=== PATIENT | female | born 1960 | race Caucasian/White ===

== ENCOUNTER → 2018-10-04 | Outpatient (CLI) | payer BC ==
--- NOTE | 2018-10-11 07:53 | MM ---
Reason for exam: screening (asymptomatic). Last mammogram was performed 3 years ago. History: Patient has history of uterine cancer at age 31. Took hormonal contraceptives for 3 years. MG 3D Screening Mammo W/Cad Bilateral CC and MLO view(s) were taken. Prior study comparison: October 15, 2015, bilateral MG screening mammo w CAD. November 29, 2007, bilateral diagnostic digital mammog. There are scattered fibroglandular densities. Bilateral breast chronic nodularity. New increased circumscribed nodularity medial right breast . One nodule, reniform in shape suggesting intramammary lymph node; a six month follow up is recommended. ASSESSMENT: Probably benign, BI-RAD 3 RECOMMENDATION: Follow-up diagnostic mammogram of the right breast in 6 months. ELIU
== END | disposition home or self-care (01) ==
LOC: RADMAMWWP 08:17
PROVIDERS: ATTEND Family Medicine
DX: Z12.31 Encounter for screening mammogram for malignant neoplasm of breast (principal)
CPT/HCPCS: 77063; 77067

== ENCOUNTER → 2018-11-14 | Outpatient (CLI) | payer OTHER ==
--- NOTE | 2018-11-14 13:05 | XR ---
EXAMINATION TYPE: XR sacrum coccyx DATE OF EXAM: 11/14/2018 COMPARISON: NONE HISTORY: Pain Three views are submitted. Sacrum is intact. SI joints are symmetric. Coccyx appears to be intact. Visualized pelvic structures intact. Calcifications in the pelvis likely vascular. IMPRESSION: 1. No acute fracture.
--- NOTE | 2018-11-14 13:08 | XR ---
EXAMINATION TYPE: XR cervical spine 5 views comp XR lumbar spine 2 or 3V DATE OF EXAM: 11/14/2018 COMPARISON: NONE HISTORY: 58-year-old female with left-sided pain after fall yesterday morning FINDINGS: Cervical spine: No predental space widening or prevertebral soft tissue swelling. Mild facet arthropathy scattered th roughout. No significant bony neuroforaminal narrowing on either side. Normal odontoid view. Lumbar spine: There is some leftward truncal shift noted which could be positional. There seems to be a transitiona l lumbosacral segment denoted as sacralized L5 with right-sided hemisacralization. There is hypertrop hic facet arthropathy mid to lower lumbar spine with grade 1 anterolisthesis at L4-L5. There is degen erative thinning of the intraspinous ligaments with abutment of the spinous processes in the lower mauro mbar spine. Vertebral body heights are preserved. IMPRESSION: 1. Cervical spine: No prevertebral soft tissue swelling or malalignment. 2. Lumbar spine: Transitional lumbosacral segment denoted as a right hemisacralization of L5. 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 No vertebral compression collapse.
--- NOTE | 2018-11-14 15:10 | XR ---
EXAMINATION TYPE: XR pelvis AP view DATE OF EXAM: 11/14/2018 COMPARISON: NONE HISTORY: 58-year-old female with left-sided pain after fall FINDINGS: Mild degenerative changes of both hips. Osteopenia. SI joints and pubic symphysis appear intact. No a cute fracture, subluxation, or dislocation. IMPRESSION: Mild degenerative change at both hips. No acute osseous abnormality seen.
== END | disposition home or self-care (01) ==
LOC: RADXRMAIN 12:04
PROVIDERS: ATTEND Emergency Medicine
DX: M46.96 Unspecified inflammatory spondylopathy, lumbar region (principal); M48.26 Kissing spine, lumbar region; M43.16 Spondylolisthesis, lumbar region; M16.0 Bilateral primary osteoarthritis of hip; S30.0XXA Contusion of lower back and pelvis, initial encounter
CPT/HCPCS: 72050; 72100; 72170; 72220

== ENCOUNTER → 2018-11-25 | Outpatient (CLI) | payer OTHER ==
--- NOTE | 2018-11-25 22:37 | MR ---
EXAMINATION TYPE: MR lumbar spine wo con DATE OF EXAM: 11/25/2018 COMPARISON: Lumbar spine x-ray November 14, 2018. HISTORY: Contusion injury November 14 of lower back and pelvis with pain into left buttocks and thigh per patient. TECHNIQUE: Multiplanar, multisequence imaging of the lumbar spine is performed without IV contrast. FINDINGS: Sagittal images of the lumbar spine show vertebral body heights and alignment to appear sat isfactory. There is multilevel disc desiccation and disc space heights are fairly well maintained. Th e large posterior disc herniations are seen on sagittal images. The conus medullaris is normal in pos ition and signal ending mid L1 level. The bone marrow signal intensity is within normal limits. No s ignificant spurring is seen. Axial images show the T12-L1, L1-L2, L2-L3, and L3-L4 levels all to appear within normal limits. Axial images at the L4-L5 levels show [id number] facet degenerative changes bilaterally. Spinal canal is preserved. Bilateral neural foramina are patent. Axial images at the L5-S1 level show moderate to advanced facet degenerative changes bilaterally. Spi nal canal is preserved. Bilateral neural foramina are patent. No suspicious incidental retroperitoneal findings are seen. IMPRESSION: Facet arthropathy lower lumbar spine. No suspicious disc herniation or paraspinal hematom a identified.
== END ==
LOC: RADMRIMAIN 20:46
PROVIDERS: ATTEND Emergency Medicine
DX: M46.86 Other specified inflammatory spondylopathies, lumbar region (principal); S30.0XXD Contusion of lower back and pelvis, subsequent encounter; S13.4XXD Sprain of ligaments of cervical spine, subsequent encounter
CPT/HCPCS: 72148

== ENCOUNTER → 2019-10-10 | Outpatient (CLI) | payer BC ==
--- NOTE | 2019-10-10 09:07 | MM ---
Reason for exam: additional evaluation requested from prior study. Last mammogram was performed 1 year ago. History: Patient has history of endometrial cancer at age 31. Took hormonal contraceptives for 3 years. Physical Findings: Nurse did not find any significant physical abnormalities on exam. MG 3D Diag Mammo W/Cad CORINNE Bilateral CC and MLO view(s) were taken. Prior study comparison: October 04, 2018, bilateral MG 3d screening mammo w/cad. October 15, 2015, bilateral MG screening mammo w CAD. There are scattered fibroglandular densities. No suspicious abnormality. No significant new findings when compared with previous films. These results were verbally communicated with the patient and result sheet given to the patient on 10/10/19. ASSESSMENT: Negative, BI-RAD 1 RECOMMENDATION: Routine screening mammogram of both breasts in 1 year.
== END | disposition home or self-care (01) ==
LOC: RADMAMWWP 08:08
PROVIDERS: ATTEND Family Medicine
DX: N63.10 Unspecified lump in the right breast, unspecified quadrant (principal); N63.20 Unspecified lump in the left breast, unspecified quadrant
CPT/HCPCS: 77062; 77066

== ENCOUNTER → 2020-11-22 | Outpatient (CLI) | payer BC ==
--- NOTE | 2020-11-22 10:11 | P.PAINCN ---
History of Present Illness - Reason for Consult Consult date: 11/22/20 - History of Present Illness This is a 60-year-old patient referred by Dr. Navarro with a chief complaint of chronic pain in right buttock area. Patient states that she had a fall in November 2018 has been having pain ever since. She saw her PCP who ordered an MRI and referred to Dr. Navarro. Pain is worse in the right side compared to the left. Pain is worse with sitting, standing from a seated position, and walking upstairs. Pain does not really radiate into the legs, occasionally will go into the posterior thigh but not often. In terms of management, patient has been taking Advil or acetaminophen as needed with some help. Has never had injections before.Currently a 04/02. Patient denies adverse drug effects from medications. Patient also denies new- onset weakness, bowel/bladder incontinence, or any other signs or symptoms of cauda equina syndrome. There are no signs of acute intoxication, and no indications of medication diversion or overuse. In addition to above, 13-point review of systems is also negative for chest pain, shortness of breath, changes in vision, changes in hearing, new onset weakness, abdominal pain, diarrhea, extreme fatigue, malaise, fever, skin ch anges, homicidal or suicidal ideation, or bowel or bladder incontinence. Physical exam: Vital Signs: Reviewed in EMR GENERAL: Well appearing, in no acute distress PSYCH: Mood and affect is appropriate. Awake, alert, and oriented SKIN: Skin color, texture, turgor normal, no rashes or lesions HEENT: Normocephalic, atraumatic. EOM intact CV: No pedal edema RESP: Respirations are unlabored, no audible wheezing GI: Abdomen non-distended MUSCULOSKELETAL: Bilateral upper and lower extremity strength is normal and symmetric. Lumbar muscle atrophy noted Lumbar spine: Straight leg raising in the sitting position is negative for radicular pain. pain to palpation over the lumbar spine and paraspinous muscles. Negative for pain with facet loading and back extension/rotation. Normal range of motion without pain reproduction Buttocks: pain to palpation over the right PSIS, Aaron test is positive on the right side Extremities: Peripheral joint ROM is full and pain free without obvious instability or laxity in all four extremities. No edema or skin discolorations noted. Gait: Gait is normal NEUR: Bilateral upper and lower extremity coordination and muscle stretch reflexes are physiologic and symmetric. Negative clonus. No loss of sensation is noted. Cranial nerves are grossly intact. Imaging: Lumbar MRI 11/2018 At the levels of 12 L1, L1-L2, L2-L3, L3-L4 all levels appear to be within nor mal limits At L4-L5, there is mild to moderate facet degenerative changes bilaterally. Spinal canal is preserved as well as a neural foramina. At the level of L5-S1 there is moderate to advanced facet degenerative changes bilaterally. There is no stenosis of the spinal canal or neural foramina. Patient does have a sacralized lumbar segment as well Assessment: 1. Right sacroiliitis 2. Lumbar spondylosis Plan: 1. Explanation: Diagnoses, prognoses, and multiple treatment options including but not limited to physical therapy, interventional therapies, medication management and surgery were discussed with the patient and all questions were answered to the patient's satisfaction. 2. Investigations: none 3. Counseling: The patient was counseled for 3 minutes on BODY MASS INDEX, EXERCISE. Specifically, the patient was instructed regarding the importance of weight control, and exercise in the context of both chronic pain and overall health. 4. Procedures: Schedule R SI injection 5. Consultations: Encouraged PT regimen at home 6. Medications: None 7. Disposition: for above procedure I have spent 41 minutes with chart reviewing the patient, speaking to the patient, and discussing plan of care with the patient Past Medical History Past Medical History: Cancer, Diabetes Mellitus, Hyperlipidemia, Hypertension, Musculoskeletal Disorder Additional Past Medical History / Comment(s): Uterine cancer. Neuropathy toes, mild. Hx fall years ago, had PT. c/o lower back and Rt hip pain History of Any Multi-Drug Resistant Organisms: None Reported Past Surgical History: Hysterectomy, Orthopedic Surgery Additional Past Surgical History / Comment(s): ORIF Rt ankle/leg; removal hardware later. Past Anesthesia/Blood Transfusion Reactions: Motion Sickness Additional Past Anesthesia/Blood Transfusion Reaction / Comm: no blood transfusion hx Smoking Status: Current every day smoker - Past Family History Mother Family Medical History: Cancer Additional Family Medical History / Comment(s): uterine cancer Father Family Medical History: Cancer Additional Family Medical History / Comment(s): skin cancer Medications and Allergies Home Medications Medication Instructions Recorded Confirmed Type Advil Duo Action 3 tab PO DIRECTED PRN 11/16/20 History Atorvastatin [Lipitor] 40 mg PO HS 11/16/20 11/16/20 History Calcium Phos/Vit D3/Mag Oxide 1 each PO DAILY 11/16/20 11/16/20 History [Posture-D Caplet] Cholecalciferol [Vitamin D3 (25 50 mcg PO DAILY 11/16/20 11/16/20 History Mcg = 1000 Iu)] Citalopram Hydrobromide 20 mg PO DAILY 11/16/20 11/16/20 History [Citalopram HBr] Dulaglutide [Trulicity] 1.5 mg SQ HENDERSON 11/16/20 11/16/20 History Insulin Degludec [Tresiba] 52 units SQ HS 11/16/20 11/16/20 History Losartan [Cozaar] 25 mg PO DAILY 11/16/20 11/16/20 History Multivit with Calcium,Iron,Min 1 each PO DAILY 11/16/20 11/16/20 History [Women's Multivitamin] Cary-3/Dha/Epa/Fish Oil [Fish Oil 1 each PO DAILY 11/16/20 11/16/20 History 500 mg Softgel] Pioglitazone [Actos] 30 mg PO DAILY 11/16/20 11/16/20 History Allergies Allergy/AdvReac Type Severity Reaction Status Date / Time naproxen Allergy Rash/Hives, Verified 11/16/20 13:46 throat closing up PQRS Measure Charge Sheet PQRS Narrative: Pain Intensity [Right Hip] 6 Pain Intensity [Lower Back] 6 Hx Alcohol Use (MH) No Home Medications: Ambulatory Orders Advil Duo Action 3 tab PO DIRECTED PRN 11/16/20 Atorvastatin [Lipitor] 40 mg PO HS 11/16/20 Calcium Phos/Vit D3/Mag Oxide [Posture-D Caplet] 1 each PO DAILY 11/16/20 Cholecalciferol [Vitamin D3 (25 Mcg = 1000 Iu)] 50 mcg PO DAILY 11/16/20 Citalopram Hydrobromide [Citalopram HBr] 20 mg PO DAILY 11/16/20 Dulaglutide [Trulicity] 1.5 mg SQ HENDERSON 11/16/20 Insulin Degludec [Tresiba] 52 units SQ HS 11/16/20 Losartan [Cozaar] 25 mg PO DAILY 11/16/20 Multivit with Calcium,Iron,Min [Women's Multivitamin] 1 each PO DAILY 11/16/20 Cary-3/Dha/Epa/Fish Oil [Fish Oil 500 mg Softgel] 1 each PO DAILY 11/16/20 Pioglitazone [Actos] 30 mg PO DAILY 11/16/20
== END ==
CPT/HCPCS: 99211

== ENCOUNTER 2020-12-14 09:04 | Day surgery (SDC) | payer BC ==
[2020-12-10 13:34] VITALS: BMI 35.4
[~2020-12-14 09:04] MED LIST: LACTATED RINGERS 1,000 ML IV SCH
[2020-12-14 09:31] VITALS: TEMP 97.7
[2020-12-14 09:41] LABS: Glucose,Whole Blood 196 mg/dL (75-99)
[2020-12-14] MEDS ORDERED: fentaNYL (PF) 50 MCG/ML 2 ML AMP ONE (09:51)
[2020-12-14] MEDS ORDERED: MIDAZOLAM 2 MG/2 ML VIAL ONE (09:51)
[2020-12-14] MEDS ORDERED: ROPIVACAINE 5MG/ML 20ML VIAL ONE (09:51)
[2020-12-14] MEDS ORDERED: methylPREDNISolone ACETATE 40 MG/ML 1 ML VIAL ONE (09:51)
[2020-12-14] MEDS ORDERED: IV FLUID CONTINUATION 1,000 ML IV ONE ×2 (10:07)
--- NOTE | 2020-12-14 10:07 | P.PCN ---
Date of Procedure: 12/14/20 Procedure(s) Performed: Procedure= Right sacroiliac joints steroid injection under fluoroscopy guidance (fluoroscopy image stored on file in the radiology Department ) Preoperative diagnosis= 1-Right sacroiliitis 2-lumbar spondylosis Postoperative diagnosis=Same as preop Diagnosis . Complication = none Condition= stable Anesthesia= moderate sedation with intravenous Versed 2 mg , and fentanyl 50 micrograms . Indication for the procedure= patient complaining of low back pain , examination was positive for severe tenderness over the Right sacroiliac joints and patient diagnosed with sacroiliitis, for this reason she was good candidate for sacroiliac joint steroid injection. Description of the procedure= procedure risk and benefits discussed with the patient, including but not limited, risk of infection and bleeding, and ALLERGIC reaction to the medication and not complete pain relief and patient agreed with the preceding patient taken to the operating room, placed in prone position or standard monitors applied to the patient then after induction of anesthesia back prepped with chlorhexidine 3 times , Then under strict sterile technique, I did the right sacroiliac joint the which was identified under fluoroscopy guidance been local infiltration of the skin and subcu interstitial with lidocaine 1% then 22-gauge Quincke Needle advanced slowly under fluoroscopy and placed in the right sacroiliac joint needle placement confirmed with AP and oblique and lateral view and after appropriate needle placement confirmed and after negative aspiration, or heme , then Ropivacaine 0.5% 3 mL, and 40 mg of Depo-Medrol mixed together and injected in the right sacroiliac joint after negative aspiration patient tolerated the procedure well without any complication.
[2020-12-14 10:10] LABS: Glucose,Whole Blood 217 mg/dL (75-99)
--- NOTE | 2020-12-14 10:13 | FL ---
EXAMINATION TYPE: FL guided pain mgmt statistic DATE OF EXAM: 12/14/2020 CLINICAL HISTORY: Sacroiliac joint pain. TECHNIQUE: Fluoroscopy. COMPARISON: None. FINDINGS: Fluoroscopic guidance was provided during pain relief procedure performed by Dr. Baer . A total of 5 seconds of fluoroscopic time was utilized during the procedure and 1 spot images are acquired. Single image acquired shows needle localization at inferior sacroiliac joint level. IMPRESSION: As Above.
[2020-12-14 10:26] VITALS: PULSE 67
[2020-12-14 10:37] VITALS: BP 140/65; RESP 20
== END 2020-12-14 10:52 | disposition home or self-care (01) ==
LOC: ORPAIN 09:04
PROVIDERS: ATTEND Specialist
DX: M46.1 Sacroiliitis, not elsewhere classified (principal); M47.816 Spondylosis without myelopathy or radiculopathy, lumbar region; Z88.6 Allergy status to analgesic agent; E11.9 Type 2 diabetes mellitus without complications
CPT/HCPCS: 27096; J2250; J1030; J3010; J2795

== ENCOUNTER → 2021-12-02 | Outpatient (CLI) | payer BC ==
--- NOTE | 2021-12-02 10:40 | CT ---
EXAMINATION TYPE: CT sinus wo con DATE OF EXAM: 12/02/2021 COMPARISON: None available HISTORY: Chronic sinusitis CT DLP: 577.3 mGycm. Automated Exposure Control for Dose Reduction was Utilized. TECHNIQUE: CT scan of the sinuses is performed without contrast, axial images are obtained, coronal r eformatted images are also reviewed. FINDINGS: Minimal deviation the bony nasal septum convex to the right side. No significant mucosal thickening o f the nasal fossa bilaterally. Paradoxical middle turbinates. Partial pneumatization of the left vert ical lamella. Unremarkable inferior turbinates. Mucosal thickening of the infundibulum bilaterally yet still patent. Circumferential mild mucosal thi ckening of the maxillary sinuses with intact bony boundaries. Unremarkable ostiomeatal complexes bila terally. Non-pneumatized frontal sinus. Grossly unremarkable ethmoid air cells. Debris within the left sphenoi d sinus compartment with minimal mucosal thickening. Clear sphenoethmoidal recesses. Minimal opacific ation of the mastoid air cells. Unremarkable visualized portion of the brain and orbits. IMPRESSION: Mild mucosal thickening of the maxillary sinuses with debris in the left sphenoid sinus c ompartment suggestive of chronic inflammatory changes. Other incidental findings as described above.
== END | disposition home or self-care (01) ==
LOC: RADCTMAIN 09:32
PROVIDERS: ATTEND Otolaryngology
DX: J32.9 Chronic sinusitis, unspecified (principal)
CPT/HCPCS: 70486

== ENCOUNTER → 2022-05-01 | Outpatient (CLI) | payer BC ==
[2022-05-01 07:50] VITALS: BP 186/84; PULSE 89; RESP 18; TEMP 98.2
--- NOTE | 2022-05-01 09:07 | P.PAINPG ---
PQRS Measure Charge Sheet Comment: HISTORY OF PRESENT ILLNESS: 61 yr old female as a referral from Dr. Mar presents today w severe and chronic ALVARENGA pain secondary to BL occipital neuralgia for evaluation. Pt underwent R SI joint injection and states she received 75% pain relief for x 8 weeks s/p procedure. Pain level is currently at 3/10 in intensity but escalates as high as 8/10 in intensity w hyperextension. Pain is constant, stabbing in character on the base of the neck and radiates towards the scalp laterally. Pain is relieved slightly w Advil Duo OTC, home stretching regimen, repositioning and rest. 3 PMH: Uterine Cancer, Diabetes Mellitus, Hyperlipidemia, Hypertension, Musculoskeletal Disorder PSH: ORIF R Ankle w Hardware, Removal later. SH: Daily tobacco use, Rare ETOH use, No illicit drug use. FH: Non contributory All: Naproxen Meds: See list REVIEW OF ORGAN SYSTEMS: CONSTITUTIONAL: No fevers or chills. No recent weight loss. NEUROLOGICAL: + numbness and tingling along the distal extremities. No seizure disorders or headaches. MUSCULOSKELETAL: + pain PSYCHIATRIC: Denies current depression or suicidal thoughts. Physical Examinations : Constitutional : Cooperative , not in acute distress . Neurologic : Cranial nerve II to XII intact. No focal neurological deficits. Psychiatric : alert & oriented x 3. Matching mood & appropriate affect. Judgment & insight intact. Musculoskeletal : Cervical Spine Motor strength in the deltoid and biceps: Normal right side. Normal Left side Motor strength biceps and the wrist extensors: Normal right side . Normal left side Motor strength in the triceps muscle: Normal right side. Normal left side Deep tendon reflexes: Normal at the biceps. Normal at Brachioradialis. Normal at triceps Vertebral body tenderness to deep palpation over Cervical facet loading test: positive bilaterally Spurling test: positive bilaterally Neck distraction test: positive bilaterally Lisa sign: positive bilaterally Lumbar spine Motor strength lower extremities ,thigh and legs 5/5 Right side , 5/5 Left side Deep tendon reflexes : Normal Knee J erk. Normal Ankle Jerk Vertebral body tenderness over Lumbar facet Loading Test: positive Right / positive Left Range of motion of the lumbar spine Flexion 30 degrees, extension 10 degrees Straight Leg Raise test: Left/ Right positive at degree Aaron test: positive right / positive left. Severe tenderness over the Sacroiliac joint on the Right / Left sides Gaenslen test: positive bilaterally Seated flexion test: positive bilaterally. Sacral spine : Severe tenderness over the Sacroiliac joint: right side / left side Range of motion: Flexion of the lumbar spine <60 degrees Range of motion: Extension of the lumbar spine <20 degrees Gaenslen's Test positive Hector's Test positive Aaron test: positive right side / left side Thigh Thrust Test Sacral Thrust Test Imaging: MRI of the brain reviewed Assessment/ Plan : BL Occipital Neuralgia Recommendation of BL Occipital Nerve Blocks. May need a series, up until RFA, for optimal pain relief. Risks, benefits of procedure discussed and patient verbalized understanding. Denies aspirin or anti- coagulant use or medical history of diabetes. Protocol for discontinuation/ continuation of medications sendy procedure discussed. All questions answered. I have spent greater than 30 minutes on patient care today. Dr Baer was available by phone for the evaluation of this patient. The time was used to review the medical records including relevant urine studies and Prescription history (MAPs), review of the available imaging, evaluation and examination of the patient, coordination of care with the medical staff and if applicable referring physicians, as well as creation of the medical record PQRS Narrative: Hx Alcohol Use (MH) No Home Medications: Ambulatory Orders Advil Duo Action 3 tab PO DIRECTED PRN 11/16/20 Cholecalciferol [Vitamin D3 (25 Mcg = 1000 Iu)] 50 mcg PO DAILY 11/16/20 Dulaglutide [Trulicity] 1.5 mg SQ HENDERSON 11/16/20 Insulin Degludec [Tresiba] 52 units SQ HS 11/16/20 Controlled Substance Measures - Controlled Substance Measures Is patient prescribed a controlled substance at discharge?: No
== END ==
LOC: PNWHC3 07:26
PROVIDERS: ATTEND Specialist
DX: M54.81 Occipital neuralgia (principal); E11.9 Type 2 diabetes mellitus without complications; E78.5 Hyperlipidemia, unspecified; I10 Essential (primary) hypertension; Z88.6 Allergy status to analgesic agent
CPT/HCPCS: 99211

== ENCOUNTER → 2023-03-05 | Outpatient (CLI) | payer BC ==
--- NOTE | 2023-03-06 12:09 | CA ---
Transthoracic Echo Report Name: Bridgett Bah Age: 62 Gender: F : 1960 Exam Date: 03/05/2023 13:43 Exam Location: [place] [facility] Ht (in): 65 Wt (lb): 176 Ordering Physician: Dayron Rothman DO Attending/Referring Phys: Flotation Operator Tonya Herzog RDCS Procedure CPT: Indications: R01.1 Cardiac Hx: Technical Quality: Fair Contrast 1: Total Dose (mL): Contrast 2: Total Dose (mL): MEASUREMENTS (Male / Female) Normal Values 2D ECHO LV Diastolic Diameter PLAX 3.6 cm 4.2 - 5.9 / 3.9 - 5.3 cm LV Systolic Diameter PLAX 2.1 cm IVS Diastolic Thickness 0.9 cm 0.6 - 1.0 / 0.6 - 0.9 cm LVPW Diastolic Thickness 1.0 cm 0.6 - 1.0 / 0.6 - 0.9 cm LV Relative Wall Thickness 0.5 RV Internal Dim ED PLAX 2.4 cm LA Systolic Diameter LX 3.0 cm 3.0 - 4.0 / 2.7 - 3.8 cm LV Diastolic Volume MOD 4C 98.6 cm??? LV Systolic Volume MOD 4C 36.5 cm??? LV Ejection Fraction MOD 4C 63.0 % LV Diastolic Length 4C 8.7 cm LV Systolic Length 4C 6.9 cm LV Diastolic Volume MOD 2C 107.2 cm??? LV Systolic Volume MOD 2C 55.6 cm??? LV Ejection Fraction MOD 2C 48.1 % LV Diastolic Length 2C 7.9 cm LV Systolic Length 2C 6.5 cm LA Volume 51.4 cm??? 18 - 58 / 22 - 52 cm??? M-MODE Aortic Root Diameter MM 3.4 cm MV E Point Septal Separation 0.8 cm AV Cusp Separation MM 1.9 cm DOPPLER AV Peak Velocity 171.5 cm/s AV Peak Gradient 11.8 mmHg MV Area PHT 2.9 cm??? Mitral E Point Velocity 83.6 cm/s Mitral A Point Velocity 117.1 cm/s Mitral E to A Ratio 0.7 MV Deceleration Time 264.5 ms MV E' Velocity 4.8 cm/s Mitral E to MV E' Ratio 17.4 FINDINGS Left Ventricle Left ventricular ejection fraction is estimated at 55-60 %. Left ventricular wall thickness normal. Normal left ventricular wall motion. Right Ventricle Normal right ventricular size and function. Unable to estimate the right ventricular systolic pressure. Right Atrium Normal right atrial size. Left Atrium Normal left atrial size. Mitral Valve Structurally normal mitral valve. No mitral stenosis, regurgitation or prolapse. Aortic Valve Trileaflet aortic valve. Focal thickening of the aortic valve cusps. Tricuspid Valve Structurally normal tricuspid valve. No tricuspid stenosis, regurgitation or prolapse. Pulmonic Valve Structurally normal pulmonic valve. No pulmonic regurgitation. Pericardium Normal pericardium. No pericardial effusion. Aorta Normal size aortic root and proximal ascending aorta. CONCLUSIONS 1. Normal left ventricle size and systolic function 2. No significant valvular abnormality 3. Aortic sclerosis with no evidence of stenosis Previewed by: Dr. Mariano Martínez MD (Electronically Signed) Final Date: 06 March 2023 12:08
== END | disposition home or self-care (01) ==
LOC: RADECHMAIN 13:38
PROVIDERS: ATTEND Family Medicine
DX: I70.0 Atherosclerosis of aorta (principal); R01.1 Cardiac murmur, unspecified
CPT/HCPCS: 93306

== ENCOUNTER → 2023-05-22 | Outpatient (CLI) | payer BC ==
--- NOTE | 2023-05-23 10:09 | MM ---
Reason for Exam: Screening (asymptomatic). Last mammogram was performed 3 year(s) and 7 month(s) ago. Patient History: Menarche at age 16. First Full-Term at age 20. Hysterectomy at age 32. Endometrial cancer, age 31. Patient used Hormonal Contraceptives for 3 years. Risk Values: Anna 5 year model risk: 0.9%. NCI Lifetime model risk: 4.9%. Prior Study Comparison: 10/15/2015 Bilateral Screening Mammogram, [facility]. 10/04/2018 Bilateral Screening Mammogram, [facility]. 10/10/2019 Bilateral Diagnostic Mammogram, [facility]. Tissue Density: There are scattered fibroglandular densities. Findings: Analyzed By CAD. There is no suspicious group of microcalcifications or new suspicious mass in either breast. Stable chronic nodularity within both breasts. Overall Assessment: Benign, BI-RAD 2 Management: Screening Mammogram of both breasts in 1 year. A clinical breast exam by your physician is recommended on an annual basis and results should be correlated with mammographic findings. Note on Anna scores and lifetime risk: 1. A Anna score greater than 3% is considered moderate risk. If this is the case, consider specialist referral to assess eligibility for a risk reducing agent. If overall lifetime risk for the development of breast cancer is 20% or higher, the patient may qualify for future screening with alternating mammogram and breast MRI. Electronically signed and approved by: Pedro Pablo Encinas D.O.
== END | disposition home or self-care (01) ==
LOC: RADMAMWWP 11:16
PROVIDERS: ATTEND Family Medicine
DX: Z12.31 Encounter for screening mammogram for malignant neoplasm of breast (principal)
CPT/HCPCS: 77063; 77067

== ENCOUNTER 2024-12-13 11:18 | Inpatient (IN) | payer BC ==
--- NOTE | 2024-12-13 12:03 | ED ---
General Adult HPI - General Chief complaint: Neuro Symptoms/Deficit Stated complaint: Numbness Time Seen by Provider: 12/13/24 11:37 Source: patient, RN notes reviewed Mode of arrival: ambulatory Limitations: no limitations - History of Present Illness Initial comments: Patient is a 64-year-old female present to the emergency department with concerns for left arm paresthesias and right leg weakness. Patient states she has a headache on the left posterior side however headaches are fairly chronic for her with similar headaches. Patient states since last night she has had some paresthesias left face and left arm which have progressed. Patient states this morning she did have some weakness of her right leg when showering and did have a near fall. Patient did have similar episode a couple months back. - Related Data Home Medications Medication Instructions Recorded Confirmed Dapagliflozin Propanediol [Farxiga] 10 mg PO DAILY 12/13/24 12/13/24 Ibuprofen/Acetaminophen [Advil 3 tab PO Q8H PRN 12/13/24 12/13/24 Dual Action 125MG(IBU)-250MG(ACET)] Losartan Potassium [Cozaar] 100 mg PO DAILY 12/13/24 12/13/24 Semaglutide [Ozempic] 2 mg SQ FR 12/13/24 12/13/24 Allergies Allergy/AdvReac Type Severity Reaction Status Date / Time naproxen Allergy Rash/Hives, Verified 12/13/24 12:55 throat closing up Review of Systems ROS Statement: Those systems with pertinent positive or pertinent negative responses have been documented in the HPI. ROS Other: All systems not noted in ROS Statement are negative. Constitutional: Denies: fever Eyes: Denies: eye pain ENT: Denies: ear pain Respiratory: Denies: cough, dyspnea Cardiovascular: Denies: chest pain Gastrointestinal: Denies: abdominal pain Neurological: Reports: as per HPI, headache, paresthesias Past Medical History Past Medical History: Cancer, Diabetes Mellitus, Hyperlipidemia, Hypertension, Musculoskeletal Disorder Additional Past Medical History / Comment(s): Hx uterine cancer. 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 Lower back and right hip pain. History of Any Multi-Drug Resistant Organisms: None Reported Past Surgical History: Hysterectomy, Orthopedic Surgery Additional Past Surgical History / Comment(s): ORIF right ankle/leg, removal of hardware later. Past Anesthesia/Blood Transfusion Reactions: Motion Sickness Additional Past Anesthesia/Blood Transfusion Reaction / Comment(s): No blood transfusion hx. Past Psychological History: Anxiety Smoking Status: Current every day smoker - Past Family History Mother Family Medical History: Cancer Additional Family Medical History / Comment(s): Uterine cancer. Father Family Medical History: Cancer Additional Family Medical History / Comment(s): Skin cancer. General Exam Limitations: no limitations General appearance: alert, in no apparent distress Head exam: Present: normocephalic Eye exam: Present: normal appearance, PERRL, EOMI Neck exam: Present: normal inspection. Absent: tenderness, meningismus Respiratory exam: Present: normal lung sounds bilaterally Cardiovascular Exam: Present: regular rate, normal rhythm GI/Abdominal exam: Present: soft. Absent: tenderness Extremities exam: Present: normal inspection. Absent: pedal edema, calf tenderness Neurological exam: Present: alert, oriented X3, CN II-XII intact Expanded Neurological exam: Present: protecting the airway Speech: Present: fluid speech Cranial nerves: EOM's Intact: Normal, Facial Sensation: Normal Sensory exam: Upper Extremity Light Touch: Normal, Lower Extremity Light Touch: Normal Motor strength exam: RUE: 5, LUE: 5, RLE: 4, LLE: 5 Eye Response: (4) open spontaneously Motor Response: (6) obeys commands Verbal Response: (5) oriented Psychiatric exam: Present: normal affect, normal mood Skin exam: Present: normal color Course Vital Signs 12/13/24 12/13/24 11:22 12:13 Temperature 97.7 F Pulse Rate 87 79 Respiratory 17 18 Rate Blood Pressure 195/104 224/98 O2 Sat by Pulse 100 97 Oximetry - Reevaluation(s) Reevaluation #1: 12/13/24 12:01 Patient case was discussed with Dr. Brannon who agrees patient is not a candidate for tenecteplase. This is secondary to NIH 1 and onset of symptoms is not quite clear. Risks are felt to outweigh the benefits. EKG Findings - EKG Results: EKG: interpreted by ERMD (LVH criteria), sinus rhythm, normal axis, normal ST/T Medical Decision Making - Medical Decision Making Was pt. sent in by a medical professional or institution (, PA, SPUD DRILLER, urgent care, hospital, or halfway...) When possible be specific @ -No Did you speak to anyone other than the patient for history (EMS, parent, family, police, friend...)? What history was obtained from this source @ -No Did you review nursing and triage notes (agree or disagree)? Why? @ -I reviewed and agree with nursing and triage notes Were old charts reviewed (outside hosp., previous admission, EMS record, old EKG, old radiological studies, urgent care reports/EKG's, halfway records)? Report findings @ -No old charts were reviewed Differential Diagnosis (chest pain, altered mental status, abdominal pain women, abdominal pain men, vaginal bleeding, weakness, fever, dyspnea, syncope, he adache, dizziness, GI bleed, back pain, seizure, CVA, palpatations, mental health, musculoskeletal)? @ -Differential Weakness: Hypoglycemia, shock, sepsis, hyponatremia, anemia, infection, AR, ETOH, adverse medicine reaction, overdose, stroke, this is not meant to be an all-inclusive list. EKG interpreted by me (3pts min.). @ -As above X-rays interpreted by me (1pt min.). @ -Chest x-ray does not show acute abnormality CT interpreted by me (1pt min.). @ -CT scan of the brain without acute abnormality. Old infarct. CTA with carotid stenosis U/S interpreted by me (1pt. min.). @ -None done What testing was considered but not performed or refused? (CT, X-rays, U/S, labs)? Why? @ -None What meds were considered but not given or refused? Why? @ -None Did you discuss the management of the patient with other professionals (professionals i.e. , PA, SPUD DRILLER, lab, RT, psych nurse, child welfare social worker, internet marketing specialist, teacher, evp chief exploration officer, rn field case manager)? Give summary @ -See above. Case also discussed with Dr. Joseph will admit covering Dr. Rothman Was smoking cessation discussed for >3mins.? @ -No Was critical care preformed (if so, how long)? @ -31 minutes critical care time Were there social determinants of health that impacted care today? How? (Homelessness, low income, unemployed, alcoholism, drug addiction, transportation, low edu. Level, literacy, decrease access to med. care, prison, rehab)? @ -No Was there de-escalation of care discussed even if they declined (Discuss DNR or withdrawal of care, Hospice)? DNR status @ -No What co-morbidities impacted this encounter? (DM, HTN, Smoking, COPD, CAD, Cancer, CVA, ARF, Chemo, Hep., AIDS, mental health diagnosis, sleep apnea, morbid obesity)? @ -None Was patient admitted / discharged? Hospital course, mention meds given and route, prescriptions, significant lab abnormalities, going to OR and other pertinent info. @ -Patient presents with chronic headache with new right leg weakness, unclear exact onset. Low NIH. Patient will be admitted with neuro and vascular consult. Patient reevaluated and updated. Patient unchanged. Admission orders written. Undiagnosed new problem with uncertain prognosis? @ -No Drug Therapy requiring intensive monitoring for toxicity (Heparin, Nitro, Insulin, Cardizem)? @ -No Were any procedures done? @ -No Diagnosis/symptom? @ -CVA Acute, or Chronic, or Acute on Chronic? @ -Acute Uncomplicated (without systemic symptoms) or Complicated (systemic symptoms)? @ -Default Side effects of treatment? @ -No Exacerbation, Progression, or Severe Exacerbation? @ -No Poses a threat to life or bodily function? How? (Chest pain, USA, AR, pneumonia, PE, COPD, DKA, ARF, appy, cholecystitis, CVA, Diverticulitis, Homicidal, Suicidal, threat to staff... and all critical care pts) @ -Threat to neurological function - Lab Data Result diagrams: 12/13/24 12:01 12/13/24 12:01 Lab Results 12/13/24 12/13/24 12/13/24 Range/Units 12:01 12:01 12:01 WBC 7.9 (3.8-10.6) k/uL RBC 4.52 (3.80-5.40) m/uL Hgb 14.3 (11.4-16.0) gm/dL Hct 42.5 (34.0-46.0) % MCV 94.0 (80.0-100.0) fL MCH 31.5 (25.0-35.0) pg MCHC 33.5 (31.0-37.0) g/dL RDW 11.5 (11.5-15.5) % Plt Count 281 (150-450) k/uL MPV 7.4 Neutrophils % 71 % Lymphocytes % 22 % Monocytes % 4 % Eosinophils % 1 % Basophils % 1 % Neutrophils # 5.5 (1.3-7.7) k/uL Lymphocytes # 1.7 (1.0-4.8) k/uL Monocytes # 0.4 (0-1.0) k/uL Eosinophils # 0.1 (0-0.7) k/uL Basophils # 0.0 (0-0.2) k/uL PT 10.9 (10.0-12.5) sec INR 1.0 (<1.2) APTT 24.5 (22.0-30.0) sec Sodium 134 L (137-145) mmol/L Potassium 4.4 (3.5-5.1) mmol/L Chloride 102 (98-107) mmol/L Carbon Dioxide 25 (22-30) mmol/L Anion Gap 7 mmol/L BUN 12 (7-17) mg/dL Creatinine 0.63 (0.52-1.04) mg/dL Est GFR (CKD-EPI)AfAm >90 (>60 ml/min/1.73 sqM) Est GFR (CKD-EPI)NonAf >90 (>60 ml/min/1.73 sqM) Glucose 183 H (74-99) mg/dL Calcium 9.3 (8.4-10.2) mg/dL Total Bilirubin 0.7 (0.2-1.3) mg/dL AST 17 (14-36) U/L ALT 11 (4-34) U/L Alkaline Phosphatase 58 (38-126) U/L Creatine Kinase 63 (30-135) U/L Total Protein 6.7 (6.3-8.2) g/dL Albumin 3.9 (3.5-5.0) g/dL Disposition Clinical Impression: Cerebrovascular accident (CVA) Disposition: ADMITTED IP TO THIS HOSP Is patient prescribed a controlled substance at d/c from ED?: No Referrals: Dayron Rothman DO [Primary Care Provider] - 1-2 days Time of Disposition: 13:53
--- NOTE | 2024-12-13 12:12 | CT ---
EXAMINATION TYPE: CT brain wo con DATE OF EXAM: 12/13/2024 COMPARISON: NONE CLINICAL INDICATION: Female, 64 years old with history of Neuro deficit, acute, stroke suspected, ELEAZAR RO DEFICITS CODE STROKE TECHNIQUE: CT scan of the head is performed without contrast. CT DLP: 1160.6 mGycm. Automated Exposure Control for Dose Reduction was Utilized. FINDINGS: There is no acute intracranial hemorrhage or midline shift identified. There is mild diff use ventricular and sulcal prominence consistent with diffuse age-related cerebral atrophy. There is mild/moderate low-attenuation in the periventricular white matter consistent with chronic small vess el ischemic change in patient of this age. There is old left-sided infarct involving flores radiata a nd left superior basal ganglia with associated ex vacuo dilatation of the adjacent anterior left late ral ventricle. The globes are intact and the visualized sinuses are clear. IMPRESSION: No acute intracranial hemorrhage or midline shift. There is mild diffuse age-related ce rebral atrophy and mild to moderate probable chronic small vessel ischemic change noted. There is ol d left-sided infarct also noted. [facility], , 12/13/2024 12:09 PM
[2024-12-13 12:16] LABS: Basophils % (A) 1 %; Eosinophils # (A) 0.1 k/uL (0-0.7); Eosinophils % (A) 1 %; HCT 42.5 % (34.0-46.0); HGB 14.3 gm/dL (11.4-16.0); Lymphocytes # (A) 1.7 k/uL (1.0-4.8); Lymphocytes % (A) 22 %; MCH 31.5 pg (25.0-35.0); MCHC 33.5 g/dL (31.0-37.0); Mean Platelet Volume 7.4; Monocytes # (A) 0.4 k/uL (0-1.0); Monocytes % (A) 4 %; Neutrophils # (A) 5.5 k/uL (1.3-7.7); Neutrophils % (A) 71 %; Platelet Count 281 k/uL (150-450); RBC 4.52 m/uL (3.80-5.40); RDW 11.5 % (11.5-15.5); WBC 7.9 k/uL (3.8-10.6)
[2024-12-13 12:27] LABS: ALT 11 U/L (4-34); AST 17 U/L (14-36); African American GFR (CKD) >90 (>60 ml/min/1.73 sqM); Albumin 3.9 g/dL (3.5-5.0); Alkaline Phosphatase 58 U/L (38-126); Anion Gap 7 mmol/L; Blood Urea Nitrogen 12 mg/dL (7-17); Calcium 9.3 mg/dL (8.4-10.2); Carbon Dioxide 25 mmol/L (22-30); Chloride 102 mmol/L (98-107); Creatine Kinase 63 U/L (30-135); Glucose 183 mg/dL (74-99); Non-African American GFR(CKD) >90 (>60 ml/min/1.73 sqM); Partial Thromboplastin Time 24.5 sec (22.0-30.0); Potassium 4.4 mmol/L (3.5-5.1); Prothrombin Time 10.9 sec (10.0-12.5); Sodium 134 mmol/L (137-145); Total Bilirubin 0.7 mg/dL (0.2-1.3); Total Protein 6.7 g/dL (6.3-8.2)
--- NOTE | 2024-12-13 12:40 | XR ---
EXAMINATION TYPE: XR chest 2V DATE OF EXAM: 12/13/2024 CLINICAL INDICATION: Female, 64 years old with history of altered mental status, TECHNIQUE: Frontal and lateral views of the chest are obtained. COMPARISON: None FINDINGS: There is no focal air space opacity, pleural effusion, or pneumothorax seen. The cardiac silhouette size is within normal limits. The osseous structures are intact. IMPRESSION: No acute cardiopulmonary process. [facility], , 12/13/2024 12:37 PM
--- NOTE | 2024-12-13 12:49 | CT ---
EXAMINATION TYPE: CT angio head neck DATE OF EXAM: 12/13/2024 COMPARISON: NONE CLINICAL INDICATION: Female, 64 years old with history of Neuro deficit, acute, stroke suspected, ELEAZAR RO DEFICITS CODE STROKE, TECHNIQUE: CTA scan of the head and neck is performed with IV Contrast, patient injected with 65 ml mL of Isovue 370, axial images are obtained, coronal and sagittal reformatted images are reviewed. 3D reconstructed images are created on an independent workstation and reviewed. NASCET criteria was use d in interpretation of this exam? CT DLP: 583.1 mGycm. Automated Exposure Control for Dose Reduction was Utilized. FINDINGS: Vertebral arteries: The vertebral arteries are patent. Vertebral artery dominance: Codominant Basilar artery: The basilar artery is intact. The basilar artery bifurcation is normal. Patent anterior communicating artery is seen. No large vessel occlusion or aneurysm in the [place] of [place]. CTA NECK: Right Carotid System: The common carotid artery and external carotid artery are patent. The carotid bifurcation demonstrate s severe mixed plaque at right carotid bulb extending into proximal internal carotid artery causing s ignificant stenosis. Lumen diameter is threadlike at some portions measuring under 1.0 mm. The lumen diameter reconstitutes to 4.5 mm superior to this. The remaining portions of the internal carotid art sera demonstrate normal size without significant narrowing. Moderate to severe Severe peripheral calci fied plaque is noted. Left Carotid System: The common carotid artery and external carotid artery are patent. The carotid bifurcation demonstrate s no evidence of hemodynamically significant stenosis. Mild to moderate peripheral plaque at this lev el is seen. The remaining portions of the internal carotid artery demonstrate normal size without sig nificant narrowing. [id number] peripheral calcified plaque is noted. Vertebral arteries are patent without evidence hemodynamically significant stenosis. There is a three-vessel aortic arch. The origins of the great vessels are patent. No evidence of hemo dynamically significant stenosis. Incidental 1.3 cm mm oval hypodense right-sided thyroid nodule coronal image 40. Nonemergent thyroid ultrasound follow-up can be performed to further evaluate if this is not known finding. IMPRESSION: Significant stenosis estimated 90% proximal right internal carotid artery . Advised vascular surgica l evaluation. [facility], , 12/13/2024 12:46 PM
[2024-12-13] MEDS: ASPIRIN 325 MG TAB PO STA (14:29)
--- NOTE | 2024-12-13 15:16 | CA ---
Transthoracic Echo Report Name: Bridgett Bah Age: 64 Gender: F : 1960 Exam Date: 12/13/2024 14:06 Exam Location: [facility] Ht (in): 65 Wt (lb): 155 Ordering Physician: Michele Roa DO Attending/Referring Phys: Wheel Mill Operator Latisha Abreu RDCS Procedure CPT: Indications: Thrombus Cardiac Hx: Technical Quality: Good Contrast 1: Total Dose (mL): Contrast 2: Total Dose (mL): MEASUREMENTS (Male / Female) Normal Values 2D ECHO LV Diastolic Diameter PLAX 4.4 cm 4.2 - 5.9 / 3.9 - 5.3 cm LV Systolic Diameter PLAX 2.9 cm IVS Diastolic Thickness 0.9 cm 0.6 - 1.0 / 0.6 - 0.9 cm LVPW Diastolic Thickness 1.1 cm 0.6 - 1.0 / 0.6 - 0.9 cm LV Relative Wall Thickness 0.4 LVOT Diameter 2.0 cm LV Diastolic Volume MOD BP 113.6 cm??? 67 - 155 / 56 - 104 cm??? LV Systolic Volume MOD BP 46.4 cm??? 22 - 58 / 19 - 49 cm??? LV Ejection Fraction MOD BP 59.2 % >= 55 % LV Cardiac Index MOD BP 3046.4 cm???/min???m??? LV Diastolic Volume MOD 4C 114.4 cm??? LV Systolic Volume MOD 4C 47.8 cm??? LV Ejection Fraction MOD 4C 58.2 % LV Cardiac Index MOD 4C 3018.6 cm???/min???m??? LV Diastolic Length 4C 8.3 cm LV Systolic Length 4C 7.1 cm LV Diastolic Volume MOD 2C 111.7 cm??? LV Systolic Volume MOD 2C 44.2 cm??? LV Ejection Fraction MOD 2C 60.4 % LV Cardiac Index MOD 2C 3057.2 cm???/min???m??? LV Diastolic Length 2C 8.4 cm LV Systolic Length 2C 7.2 cm LA Volume 50.9 cm??? 18 - 58 / 22 - 52 cm??? LA Volume Index 28.1 cm???/m??? 16 - 28 cm???/m??? DOPPLER AV Peak Velocity 145.3 cm/s AV Peak Gradient 8.4 mmHg AV Mean Velocity 93.6 cm/s AV Mean Gradient 4.0 mmHg AV Velocity Time Integral 31.2 cm LVOT Peak Velocity 94.8 cm/s LVOT Peak Gradient 3.6 mmHg LVOT Velocity Time Integral 20.6 cm LVOT Stroke Volume 67.3 cm??? LVOT Stroke Volume Index 37.9 ml/m??? LVOT Cardiac Index 3048.9 cm???/min???m??? AV Area Cont Eq vti 2.2 cm??? AV Area Cont Eq pk 2.1 cm??? MV Area PHT 3.9 cm??? Mitral E Point Velocity 55.6 cm/s Mitral A Point Velocity 91.8 cm/s Mitral E to A Ratio 0.6 MV Deceleration Time 196.7 ms TR Peak Velocity 249.0 cm/s TR Peak Gradient 24.8 mmHg Right Atrial Pressure 5.0 mmHg Pulmonary Artery Systolic Pressu 29.8 mmHg Right Ventricular Systolic Press 29.8 mmHg PV Peak Velocity 105.4 cm/s PV Peak Gradient 4.4 mmHg FINDINGS Left Ventricle Left ventricular ejection fraction is estimated at 55-60 %. Mildly increased posterior wall thickness. Mildly increased left ventricular diastolic volume. No obvious regional wall motion abnormalities. Right Ventricle Normal right ventricular size and function. Right ventricular systolic pressure within normal limits. Right Atrium Normal right atrial size. Left Atrium Normal left atrial size. Mitral Valve Structurally normal mitral valve. No evidence for mitral valve prolapse. No mitral stenosis. Mild mitral regurgitation. Aortic Valve Trileaflet aortic valve. No aortic valve stenosis or regurgitation. Tricuspid Valve Structurally normal tricuspid valve. No tricuspid stenosis. Trace tricuspid regurgitation. Pulmonic Valve Structurally normal pulmonic valve. No pulmonic stenosis. No pulmonic regurgitation. Pericardium No pericardial effusion. Aorta Normal size aortic root and proximal ascending aorta. CONCLUSIONS Indication: Evaluate for thrombus Normal LV size and function Normal RV size and function No intracardiac masses noted Previewed by: Dr. Jacek Winn MD (Electronically Signed) Final Date: 13 December 2024 15:15
[2024-12-13] MEDS ORDERED: ALPRAZolam 0.25 MG TAB PO PRN (17:49)
[2024-12-13] MEDS ORDERED: TEMAZEPAM 15 MG CAP PO PRN (17:49)
[2024-12-13] MEDS: CLOPIDOGREL 75 MG TAB PO STA (18:30)
[2024-12-13] MEDS: amLODIPine 5 MG TAB PO SCH (18:30)
[2024-12-13] MEDS: LOSARTAN 50 MG TAB PO SCH (18:31)
[2024-12-13] MEDS: HEPARIN SODIUM,PORCINE 5,000 UNIT/ML 1 ML VIAL SQ SCH (20:29)
[2024-12-13 21:51] LABS: Appearance,Urine Clear (Clear); Bilirubin,Urine Negative (Negative); Blood,Urine Negative (Negative); Color,Urine Colorless; Glucose,Urine (UA) 2+ (Negative); Ketones,Urine Negative (Negative); Leukocyte Esterase,Urine Negative (Negative); Nitrite,Urine Negative (Negative); Protein,Urine Negative (Negative); Urobilinogen,Urine <2.0 mg/dL (<2.0)
[2024-12-13 22:16] LABS: Amphetamine Screen,Urine Not Detected (NotDetected); Barbiturate Screen,Urine Not Detected (NotDetected); Benzodiazepines Screen,Urine Not Detected (NotDetected); Cocaine Screen,Urine Not Detected (NotDetected); Methadone Screen, Urine Not Detected (NotDetected); Opiate Screen,Urine Not Detected (NotDetected); Oxycodone Screen, Urine Not Detected (NotDetected); Phencyclidine Screen,Urine Not Detected (NotDetected); Tricyclic Antidepressant,Urine Not Detected (NotDetected); Urn Cannabinoid Scrn Not Detected (NotDetected)
--- NOTE | 2024-12-14 03:18 | HP ---
HISTORY AND PHYSICAL CHIEF COMPLAINT: Numbness and weakness on the left side. HISTORY OF PRESENT ILLNESS: This 64-year-old woman with a past medical history of multiple medical problems including diabetes mellitus, hypertension, hyperlipidemia, was complaining of numbness and weakness on the left side. The patient also had a pain in the left side of the back of the neck and some weakness also. The blood pressure is also elevated. There is no history of any fever, rigors, chills at this time. PAST MEDICAL HISTORY: Reviewed and includes diabetes mellitus, hypertension, hyperlipidemia. The rest of the history and chart is also reviewed. HOME MEDICATIONS: Ozempic, dose and rest of medications reviewed. ALLERGIES: Naprosyn. FAMILY HISTORY: Uterine cancer. SOCIAL HISTORY: No current smoking. REVIEW OF SYSTEMS: 14-point review of systems is negative except as mentioned earlier. PHYSICAL EXAM: VITAL SIGNS: Pulse 73, blood pressure n, respirations 18. HEENT: Conjunctivae normal. NECK: n ABDOMEN: Soft, nontender. LEGS: No edema. No swelling. NERVOUS SYSTEM: Mild weakness on the left side and numbness also present on the left side. No signs of cerebellar incoordination. LABORATORY DATA: Reviewed. ASSESSMENT: 1. Possible acute stroke involving the right hemisphere causing left-sided symptoms. 2. Accelerated hypertension and hypertensive urgency. 3. Diabetes mellitus type 2. 4. Hypertension. 5. Hyperlipidemia. 6. Headaches. 7. History of uterine cancer. 8. Multiple complex medical issues. RECOMMENDATIONS AND DISCUSSION: In this 64-year-old woman presented with multiple complex medical issues, at this time CT scan showed no acute abnormality. CT angio also showed no evidence of stroke or acute occlusion, but 90% of the stenosis in the right ICA was noted. At this time, I would recommend p.r.n. hydralazine to reduce the blood pressure cautiously. Neurology consultation, neurovascular checkup, complete neurovascular workup, and resume the rest of the home medications. Prognosis is guarded because of multiple complex medical issues and further recommendations to follow. Stroke code was called. MMODL / IJN: [id number] / ELIU
--- NOTE | 2024-12-14 07:32 | P.CNNES ---
History of Present Illness Consult date: 12/13/24 Requesting physician: Michele Roa Reason for Consult: CVA History of Present Illness: Patient is a 64-year-old right-handed female came to the hospital, today at 11:18 AM for recurrent strokelike symptoms. Patient's daughter was also present by the bedside and they provided the history. Patient says that on , 2 days ago, she was prescribed losartan for blood pressure and Farxiga for diabetes and she took both medication at the same time. Shortly after she started having neurological symptoms. She has been having numbness of the left arm, and left hand off and on since then. On , (2 days ago), she couldn't bead picker anything off the floor with her left hand. She has been having sharp pain in the base of the skull to the top of the neck. She had an episode in which her left ear became numb and then extended to the posterior cheek region and also developed numbness of the left arm and left hand fingers. Yesterday her head was pounding. There is no slurred speech or facial droop and denies any loss of vision or double vision. Because of the symptoms, patient came to the ER. Vital signs on arrival blood pressure 195/104, which came up to 220/98 and then 194/101. Pulse rate 87 temperature 97.7. Blood test shows normal CBC, PT PTT, normal CMP. Sodium 134. EKG showed sinus rhythm. CT head showed no acute intracranial process. There is mild diffuse age-related cerebral atrophy and mild to moderate probable chronic small vessel ischemic change noted. There is old left-sided infarct also noted. I personally reviewed CT head and agree with the findings. Chest x-ray showed no acute cardiopulmonary process. Patient had a strokelike symptoms about 5-6 months ago, when she fell in the shower because her right leg felt numb and gave out. When she would walk, her right leg would not go and would give out. It lasted for a week and then symptoms went away. Patient had started taking blood pressure medication one week prior to the symptoms, and she blamed it on the blood pressure medications and stopped taking it. She did not seek medical attention. Patient has history of hypertension, diabetes for 20 years, has smoked half pack per day for 40 years. She denies any alcohol use or marijuana. Home medications include losartan, ibuprofen, Farxiga, Ozempic. She has been on Prozac back for 2-3 years. She just started taking losartan and Farsxiga , and took only one dose of these medications prior to noticing above symptoms. Patient does not take any antiplatelet medication at home. Review of Systems All pertinent positive and negative review of systems mentioned in the HPI. Otherwise unremarkable. Patient does have frequency of urination. Some photophobia. Past Medical History Past Medical History: Cancer, Diabetes Mellitus, Hyperlipidemia, Hypertension, Musculoskeletal Disorder Additional Past Medical History / Comment(s): Hx uterine cancer. 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 Lower back and right hip pain. History of Any Multi-Drug Resistant Organisms: None Reported Past Surgical History: Hysterectomy, Orthopedic Surgery Additional Past Surgical History / Comment(s): ORIF right ankle/leg, removal of hardware later. Past Anesthesia/Blood Transfusion Reactions: Motion Sickness Additional Past Anesthesia/Blood Transfusion Reaction / Comment(s): No blood transfusion hx. Past Psychological History: Anxiety Smoking Status: Current every day smoker - Past Family History Mother Family Medical History: Cancer Additional Family Medical History / Comment(s): Uterine cancer. Father Family Medical History: Cancer Additional Family Medical History / Comment(s): Skin cancer. Medications and Allergies Home Medications Medication Instructions Recorded Confirmed Type Dapagliflozin Propanediol [Farxiga] 10 mg PO DAILY 12/13/24 12/13/24 History Ibuprofen/Acetaminophen [Advil 3 tab PO Q8H PRN 12/13/24 12/13/24 History Dual Action 125MG(IBU)-250MG(ACET)] Losartan Potassium [Cozaar] 100 mg PO DAILY 12/13/24 12/13/24 History Semaglutide [Ozempic] 2 mg SQ FR 12/13/24 12/13/24 History Allergies Allergy/AdvReac Type Severity Reaction Status Date / Time naproxen Allergy Rash/Hives, Verified 12/13/24 12:55 throat closing up Physical Examination - Vital Signs Vital Signs: Vital Signs Temp Pulse Resp BP Pulse Ox 12/13/24 16:13 73 18 220/96 97 12/13/24 14:13 70 18 206/99 99 12/13/24 13:56 73 18 206/96 98 12/13/24 13:43 79 18 98 12/13/24 13:28 80 18 210/109 98 12/13/24 13:13 78 18 194/101 98 12/13/24 12:13 79 18 224/98 97 12/13/24 11:22 97.7 F 87 17 195/104 100 Intake and Output 12/13/24 12/13/24 12/13/24 06:59 14:59 22:59 Other: Weight 70.307 kg Patient is a late middle aged female, very pleasant, in no acute distress. Patient is alert awake oriented to time place and person. Speech and language functions are normal. Patient can name and repeat very well. No aphasia or dysarthria. Attention, concentration and fund of knowledge is adequate. On cranial nerve examination, pupils are equal, round and reacting to light, visual mclean are full on confrontation, with no neglect on double simultaneous stimulation. Extraocular muscles are intact with no nystagmus. Face is symmetric, tongue protrudes to the midline. Palatal elevation and sensation normal, hearing and shoulder shrug normal, facial sensation normal. On muscle strength testing, there is no pronator drift and the strength is n ormal in arms and legs distally and proximally. Deep tendon reflexes are (right/left) biceps 1/2, brachioradialis 1/2, knees 2/2+ and plantars are probable upgoing bilaterally. Sensory to touch is equal with no neglect on double simultaneous stimulation. Cerebellar function showed no ataxia for [id number] testing. No dysdiadochokinesia. No ataxia for [id number] testing on either side. Tone and bulk of muscles normal. Gait deferred.. On general examination, there is no carotid bruit or murmur, S1-S2 audible. Chest is clear on consultation. Abdomen is soft nontender. No organomegaly, bowel sounds present. Peripheral pulses are present. No peripheral edema. Results - Laboratory Findings CBC and BMP: 12/13/24 12:01 12/13/24 12:01 Abnormal Lab Findings: Abnormal Labs 12/13/24 12:01 Sodium 134 L Glucose 183 H Assessment and Plan Assessment: * Recurrent TIA involving right hemispheric region, with left arm and hand wea kness, numbness. Sometimes involving left facial region and left leg, likely due to symptomatic right ICA stenosis. * Right ICA stenosis 90%, per CTA, symptomatic * Probable history of CVA 5-6 months ago manifesting with right leg weakness, that lasted for a week and then resolved. Patient did not seek medical attention at that time. CT head revealed remote stroke involving the left anterior limb of internal capsule. * Hypertension, accelerated * Diabetes * Hyperlipidemia * Tobacco use Plan: Patient has presented with recurrent TIA. At present her examination is normal, with NIH stroke scale of 0. Patient not a candidate fot TNK at this time. MRI of the brain without contrast, evaluate for acute CVA 2-D echo revealed LVEF 55 to 60%. Mildly increased posterior wall thickness. Mildly increased left ventricular diastolic volume. No obvious regional wall motion abnormalities. Normal left and right atrial size. No intracardiac masses. CTA head and neck showed: Significant stenosis estimated 90% proximal right ICA. Advised vascular surgical consultation. Await vascular surgical consultation Fasting a.m. lipid panel Hemoglobin A1c Permissive hypertension for next 24-48 hours Patient was not taking any antiplatelet medication at home. Because of recurrent symptoms, patient has been loaded with aspirin and Plavix. Continue aspirin 325 mg and Plavix 75 mg daily pending further testing. Neuro checks every 2 hours. Telemetry monitoring rule out any arrhythmia PT, OT, speech therapy DVT prophylaxis: Heparin 5000 units subcu every 12 hours Patient on Protonix for gastric ulcer prophylaxis. Dr. Wm Pink will resume neurology service in the morning. Thank you for the consult.
[2024-12-14] MEDS: PANTOPRAZOLE 40 MG TABLET PO SCH (09:13)
[2024-12-14] MEDS: CLOPIDOGREL 75 MG TAB PO SCH (09:14)
[2024-12-14] MEDS: ASPIRIN 325 MG TAB PO SCH (09:14)
[2024-12-14] MEDS: DAPAGLIFLOZIN PROPANEDIOL 10 MG TABLET PO SCH (09:15)
--- NOTE | 2024-12-14 12:51 | P.GSCN ---
History of Present Illness Consult date: 12/14/24 History of present illness: Patient is a 64-year-old female with multiple previous issues with TIA-like symptoms, most recently last week she had issues with her left upper extremity. She drops and then was able to pick it up due to weakness. She denies any significant lower extremity issues. She denies any further issues since being here in the hospital. She typically works daily climbing up and down stairs multiple times a day without any cardiac or respiratory concerns. Past Medical History Past Medical History: Cancer, Diabetes Mellitus, Hyperlipidemia, Hypertension, Musculoskeletal Disorder Additional Past Medical History / Comment(s): Hx uterine cancer. 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 Lower back and right hip pain. History of Any Multi-Drug Resistant Organisms: None Reported Past Surgical History: Hysterectomy, Orthopedic Surgery Additional Past Surgical History / Comment(s): ORIF right ankle/leg, removal of hardware later. Past Anesthesia/Blood Transfusion Reactions: Motion Sickness Additional Past Anesthesia/Blood Transfusion Reaction / Comm: No blood transf usion hx. Past Psychological History: Anxiety Smoking Status: Current every day smoker - Past Family History Mother Family Medical History: Cancer Additional Family Medical History / Comment(s): Uterine cancer. Father Family Medical History: Cancer Additional Family Medical History / Comment(s): Skin cancer. Medications and Allergies Home Medications Medication Instructions Recorded Confirmed Type Dapagliflozin Propanediol [Farxiga] 10 mg PO DAILY 12/13/24 12/13/24 History Ibuprofen/Acetaminophen [Advil 3 tab PO Q8H PRN 12/13/24 12/13/24 History Dual Action 125MG(IBU)-250MG(ACET)] Losartan Potassium [Cozaar] 100 mg PO DAILY 12/13/24 12/13/24 History Semaglutide [Ozempic] 2 mg SQ FR 12/13/24 12/13/24 History Allergies Allergy/AdvReac Type Severity Reaction Status Date / Time naproxen Allergy Rash/Hives, Verified 12/13/24 12:55 throat closing up Surgical - Exam Vital Signs Temp Pulse Resp BP Pulse Ox 97.7 F 87 17 195/104 100 12/13/24 11:22 12/13/24 11:22 12/13/24 11:22 12/13/24 11:22 12/13/24 11:22 General appearance: alert, in no apparent distress Head exam: Present: normocephalic Eye exam: normal appearance, PERRL, EOMI Respiratory exam: No respiratory distress GI/Abdominal exam: Soft nontender Extremities exam: No clubbing, cyanosis or edema Neurological exam: alert, oriented X3, CN II-XII intact Psychiatric exam: normal affect, normal mood Skin exam: normal color Results CT scan reviewed. Agree that there is greater than 90% stenosis of the right internal carotid artery - Labs 12/13/24 12:01 12/13/24 12:01 Abnormal Lab Results - Last 24 Hours (Table) 12/13/24 Range/Units 21:04 Urine Glucose (UA) 2+ H (Negative) Assessment and Plan Assessment: High-grade right ICA stenosis, likely symptomatic History of CVA Diabetes Hypertension Tobacco abuse Plan: Long discussion how she is about her right internal carotid artery stenosis likely being symptomatic. MRI is pending. Due to significant stenosis, did discuss surgical options including carotid endarterectomy, transfemoral and transcarotid artery revascularization. Patient now on dual antiplatelet therapy. Will obtain cardiac clearance and potentially plan for carotid endarte rectomy this week. Patient is mildly hypertensive going home prior to repair. Did discuss that we have a 2-week window however we will try to see if we can get this done in a safe and timely manner.
[2024-12-14 13:36] LABS: Chol/HDL Ratio 7.85 Ratio; LDL Cholesterol,Calculated 171.7 mg/dL (0.0-131.0)
[2024-12-14] MEDS: ACETAMINOPHEN TAB 325 MG TAB PO PRN (18:49)
[2024-12-14] MEDS: ATORVASTATIN 40 MG TAB PO SCH (20:31)
[2024-12-14 20:38] LABS: Glucose,Whole Blood 206 mg/dL (70-110)
--- NOTE | 2024-12-14 23:00 | PN ---
PROGRESS NOTE DATE OF SERVICE: 12/14/2024 SUBJECTIVE: This 64-year-old woman who was admitted with significant numbness and weakness. The left side of the body also had significant carotid artery stenosis. On the right side limited on a Carotid. Dr. Simon is planning surgery on Sunday. The patient also had hyperlipidemia. The patient is being closely monitored at this time. There is no history of any fever, rigors, or chills. PAST MEDICAL HISTORY: Reviewed. REVIEW OF SYSTEMS: Fourteen-point review of systems negative except as mentioned earlier CURRENT MEDICATIONS: Reviewed. PHYSICAL EXAMINATION: VITAL SIGNS: Pulse is 73, blood pressure 160/76, and respirations 18. HEENT: Conjunctivae normal. CARDIOVASCULAR: S1, S2. ABDOMEN: Soft. NERVOUS SYSTEM: Minimal numbness on the left side. LABORATORY DATA: Reviewed. ASSESSMENT: 1. Acute stroke involving the right hemisphere causing left-sided symptoms. 2. High-grade stenosis of the right internal carotid artery. 3. Accelerated hypertension and hypertensive urgency. 4. Hypercholesterolemia and hypertriglyceridemia. 5. Diabetes mellitus, type 2. 6. Hypertension. 7. Multiple complex medical issues. RECOMMENDATIONS: Recommend to continue current management, continue symptomatic treatment. Continue with antiplatelet agents. Neurology evaluation. Vascular Surgery is planning carotid surgery. Cardiac clearance has been sought. Guarded prognosis. Further recommendations to follow. The patient is on Lipitor 40 mg q.h.s. DVT prophylaxis. MMODL / IJN: [id number] /
[2024-12-15 05:55] LABS: Glucose,Whole Blood 154 mg/dL (70-110)
[2024-12-15 06:14] LABS: African American GFR (CKD) >90 (>60 ml/min/1.73 sqM); Anion Gap 8 mmol/L; Blood Urea Nitrogen 14 mg/dL (7-17); Calcium 9.1 mg/dL (8.4-10.2); Carbon Dioxide 24 mmol/L (22-30); Chloride 104 mmol/L (98-107); Glucose 126 mg/dL (74-99); Non-African American GFR(CKD) >90 (>60 ml/min/1.73 sqM); Potassium 3.7 mmol/L (3.5-5.1); Sodium 136 mmol/L (137-145)
[2024-12-15 06:55] LABS: Basophils % (A) 1 %; Eosinophils # (A) 0.1 k/uL (0-0.7); Eosinophils % (A) 2 %; HGB 13.4 gm/dL (11.4-16.0); Lymphocytes % (A) 59 %; MCH 31.8 pg (25.0-35.0); MCHC 34.2 g/dL (31.0-37.0); Mean Platelet Volume 7.1; Monocytes # (A) 0.3 k/uL (0-1.0); Monocytes % (A) 6 %; Neutrophils # (A) 1.5 k/uL (1.3-7.7); Neutrophils % (A) 29 %; Platelet Count 251 k/uL (150-450); RBC 4.19 m/uL (3.80-5.40); RDW 11.4 % (11.5-15.5); WBC 5.1 k/uL (3.8-10.6)
[2024-12-15] MEDS: ASPIRIN 81 MG PO SCH (07:29)
--- NOTE | 2024-12-15 08:15 | P.CRDCN ---
History of Present Illness Consult date: 12/15/24 History of present illness: The patient is a pleasant 64-year-old female patient with a past medical history significant for hypertension and dyslipidemia and smoking and diabetes who was admitted to the hospital with an episode of TIA. She underwent further evaluation including carotid duplex study and that revealed critical disease involving the right internal carotid artery and she was seen by a vascular surgeon with a plan to perform right carotid enterectomy and the cardiac consult is for preop cardiac assessment before noncardiac surgery with the patient is asymptomatic and hemodynamically stable with the pressure being consistent with a stage II hypertension at this point. She was started on aspirin and Plavix and statin. 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 Up to the level of activity she is doing she reports no pain in the chest or shortness of breath or dizziness or lightheadedness or any feeling of heart racing or fluttering. She underwent an echo during her hospital stay and that showed normal biventricular dimension and systolic function with no significant valvular abnormalities. The EKG showed sinus mechanism with nonspecific ST and T wave abnormalities noted. The physical examination is remarkable for vital signs as described above with pressure consistent with stage II hypertension and regular rate and rhythm and soft systolic murmur and clear breathing sounds bilaterally and no edema was noted in the lower extremities Assessment Severe symptomatic carotid atherosclerosis Multiple comorbid conditions including smoking and diabetes and hypertension and dyslipidemia Plan Continue the current medical regimen The patient can proceed with the carotid endarterectomy Past Medical History Past Medical History: Cancer, Diabetes Mellitus, Hyperlipidemia, Hypertension, Musculoskeletal Disorder Additional Past Medical History / Comment(s): Hx uterine cancer. 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 Lower back and right hip pain. History of Any Multi-Drug Resistant Organisms: None Reported Past Surgical History: Hysterectomy, Orthopedic Surgery Additional Past Surgical History / Comment(s): ORIF right ankle/leg, removal of hardware later. Past Anesthesia/Blood Transfusion Reactions: Motion Sickness Additional Past Anesthesia/Blood Transfusion Reaction / Comment(s): No blood t ransfusion hx. Past Psychological History: Anxiety Smoking Status: Current every day smoker Past Alcohol Use History: None Reported Additional Past Alcohol Use History / Comment(s): Smoking since age 17, 1/2 ppd. Past Drug Use History: None Reported Additional Drug Use History / Comment(s): Hx CBD oil use, none currently. - Past Family History Mother Family Medical History: Cancer Additional Family Medical History / Comment(s): Uterine cancer. Father Family Medical History: Cancer Additional Family Medical History / Comment(s): Skin cancer. Medications and Allergies Home Medications Medication Instructions Recorded Confirmed Type Dapagliflozin Propanediol [Farxiga] 10 mg PO DAILY 12/13/24 12/13/24 History Ibuprofen/Acetaminophen [Advil 3 tab PO Q8H PRN 12/13/24 12/13/24 History Dual Action 125MG(IBU)-250MG(ACET)] Losartan Potassium [Cozaar] 100 mg PO DAILY 12/13/24 12/13/24 History Semaglutide [Ozempic] 2 mg SQ FR 12/13/24 12/13/24 History Allergies Allergy/AdvReac Type Severity Reaction Status Date / Time naproxen Allergy Rash/Hives, Verified 12/13/24 12:55 throat closing up Physical Exam Vitals: Vital Signs Temp Pulse Pulse Resp BP BP Pulse Ox 12/15/24 07:31 97.9 F 17 176/83 96 12/15/24 03:42 72 16 164/79 97 12/15/24 00:53 75 18 12/14/24 23:30 68 16 159/83 99 12/14/24 20:28 98.1 F 75 17 169/83 99 12/14/24 20:00 75 18 12/14/24 18:44 75 18 12/14/24 18:39 75 18 177/76 100 12/14/24 18:01 98.0 F 73 16 192/91 98 12/14/24 15:24 74 16 158/98 98 12/14/24 09:17 16 163/86 97 Intake and Output 12/14/24 12/15/24 12/15/24 22:59 06:59 14:59 Other: Voiding Method Toilet Weight 70.307 kg 71.8 kg Results 12/15/24 05:24 12/15/24 05:24 Lipids 12/14/24 Range/Units 07:35 Triglycerides 228.00 H (0.00-149.00) mg/dL Cholesterol 249.00 H (0.00-200.00) mg/dL HDL Cholesterol 31.70 L (40.00-60.00) mg/dL Cholesterol/HDL Ratio 7.85 Ratio CBC 12/15/24 Range/Units 05:24 WBC 5.1 (3.8-10.6) k/uL RBC 4.19 (3.80-5.40) m/uL Hgb 13.4 (11.4-16.0) gm/dL Hct 39.0 (34.0-46.0) % Plt Count 251 (150-450) k/uL Comprehensive Metabolic Panel 12/15/24 Range/Units 05:24 Sodium 136 L (137-145) mmol/L Potassium 3.7 (3.5-5.1) mmol/L Chloride 104 (98-107) mmol/L Carbon Dioxide 24 (22-30) mmol/L BUN 14 (7-17) mg/dL Creatinine 0.67 (0.52-1.04) mg/dL Glucose 126 H (74-99) mg/dL Calcium 9.1 (8.4-10.2) mg/dL Current Medications Generic Name Dose Route Start Last Admin Trade Name Freq PRN Reason Stop Dose Admin Acetaminophen 650 mg 12/14/24 18:29 12/15/24 07:34 Acetaminophen Tab 325 Mg Tab PO 650 mg Q6HR PRN Administration Fever and/ or Pain Acetaminophen/Codeine Phosphate 1 each 12/13/24 17:49 Acetaminophen-Codeine 300-30mg Tab PO Q6HR PRN Pain Alprazolam 0.25 mg 12/13/24 17:49 Alprazolam 0.25 Mg Tab PO TID PRN Anxiety Amlodipine Besylate 5 mg 12/13/24 18:00 12/15/24 07:29 Amlodipine 5 Mg Tab PO 5 mg DAILY STAR Administration Aspirin 81 mg 12/15/24 09:00 12/15/24 07:29 Aspirin 81 Mg PO 81 mg DAILY STAR Administration Atorvastatin Calcium 40 mg 12/14/24 21:00 12/14/24 20:31 Atorvastatin 40 Mg Tab PO 40 mg HS STAR Administration Clopidogrel Bisulfate 75 mg 12/14/24 09:00 12/15/24 07:29 Clopidogrel 75 Mg Tab PO 75 mg DAILY STAR Administration Dapagliflozin 10 mg 12/14/24 09:00 12/15/24 07:29 Dapagliflozin Propanediol 10 Mg Tablet PO 10 mg DAILY STAR Administration Heparin Sodium (Porcine) 5,000 unit 12/13/24 21:00 12/15/24 07:29 Heparin Sodium,Porcine 5,000 Unit/Ml 1 Ml Vial SQ 5,000 unit Q12HR STAR Administration Hydralazine HCl 10 mg 12/13/24 17:46 Hydralazine Hcl 20 Mg/Ml 1 Ml Vial IVP Q4HR PRN Blood Pressure - High Losartan Potassium 100 mg 12/13/24 17:45 12/15/24 07:29 Losartan 50 Mg Tab PO 100 mg DAILY STAR Administration Pantoprazole Sodium 40 mg 12/14/24 07:30 12/15/24 06:32 Pantoprazole 40 Mg Tablet PO 40 mg [id number] STAR Administration Temazepam 15 mg 12/13/24 17:49 Temazepam 15 Mg Cap PO HS PRN Insomnia Intake and Output 12/14/24 12/15/24 12/15/24 22:59 06:59 14:59 Other: Voiding Method Toilet Weight 70.307 kg 71.8 kg 12/15/24 05:24 12/15/24 05:24
[2024-12-15 11:32] LABS: Glucose,Whole Blood 124 mg/dL (70-110)
[2024-12-15] MEDS: diazePAM 5 MG TAB PO STA (14:30)
--- NOTE | 2024-12-15 15:16 | P.PN ---
Subjective Progress Note Date: 12/15/24 Principal diagnosis: TIA, Carotid stenosis Doing well today. No new events. Objective - Vital Signs Vital signs: Vital Signs Temp 97.9 F 12/15/24 07:31 Pulse 73 12/15/24 11:16 Resp 16 12/15/24 11:16 BP 167/76 12/15/24 11:16 Pulse Ox 98 12/15/24 11:16 FiO2 Intake & Output 12/14/24 12/15/24 12/15/24 18:59 06:59 18:59 Intake Total 800 Balance 800 Weight 70.307 kg 71.8 kg Intake: Oral 800 Other: Voiding Method Toilet # Voids 2 # Bowel Movements 0 - Exam NAD PERRL, EOMI No respiratory distress Abdomen soft Alert, oriented, no focal deficits - Labs CBC & Chem 7: 12/15/24 05:24 12/15/24 05:24 Labs: Abnormal Lab Results - Last 24 Hours (Table) 12/14/24 12/15/24 12/15/24 Range/Units 20:36 05:24 05:24 RDW 11.4 L (11.5-15.5) % Sodium 136 L (137-145) mmol/L Glucose 126 H (74-99) mg/dL POC Glucose (mg/dL) 206 H (70-110) mg/dL 12/15/24 12/15/24 Range/Units 05:54 11:31 RDW (11.5-15.5) % Sodium (137-145) mmol/L Glucose (74-99) mg/dL POC Glucose (mg/dL) 154 H 124 H (70-110) mg/dL Assessment and Plan Assessment: High grade right ICA stenosis History of CVA DM HTN Tobacco abuse Plan: OR tentatively Sunday with Dr. Simon for carotid endarterectomy Cardiology recs appreciated- cleared for surgery Awaiting MRI results
--- NOTE | 2024-12-15 15:43 | MR ---
INDICATION: Patient age:Female; 64 years old; Reason for study: Stroke TIA; PHH. COMPARISON: CT brain 12/13/2024, CT head and neck 12/13/2024 TECHNIQUE: Multi planar, multi sequence imaging was performed through the brain without the administr ation of intravenous contrast. FINDINGS: The mena-white junctions and basal cisterns appear unremarkable. No hydrocephalus. Ex vacuo dilatatio n of the anterior horn of the left lateral ventricle. Age-appropriate cerebral parenchymal volume. Di ffusion-weighted imaging shows several foci of restricted diffusion involving the right frontal and r ight parietal lobes. Additional more focal region of restricted diffusion within the right occipital lobe. There is corresponding T2/FLAIR hyperintensity. Intracranial arterial flow voids are maintained . Midline structures show no abnormality. Patchy areas of high T2 signal intensity are seen within th e subcortical and periventricular white matter. Remote injury to the left basal ganglia, flores radia ta, and left frontal lobe periventricular region with gliosis and encephalomalacia. Scattered promine nt perivascular spaces. The susceptibility weighted images do not reveal any evidence for micro-hemor rhage. The bone marrow signal is within normal limits. The globes are unremarkable. Minimal mucosal thicken ing of the left sphenoid sinus. Remaining paranasal sinuses are clear. Bilateral mastoid effusions. IMPRESSION: 1. Acute/subacute ischemia predominantly within the right occipital lobe with additional scattered fo ci involving the right frontal and parietal lobes. 2. Remote injuries with encephalomalacia involving the left basal ganglia, flores radiata, and left f rontal lobe periventricular region. 3. Nonspecific white matter changes, likely related to small vessel ischemic disease. A Red level critical message alert has been initiated for [facility] via the [employer] tical Results System on 12/15/2024 3:41 PM. This message alert has been sent to [facility] via the preferences provided by the clinician for the receipt of Radiology Critical Findings. Message ID [id number]. [facility], , 12/15/2024 3:41 PM
[2024-12-15 16:32] LABS: Glucose,Whole Blood 132 mg/dL (70-110)
[2024-12-15 20:19] LABS: Glucose,Whole Blood 127 mg/dL (70-110)
--- NOTE | 2024-12-15 22:26 | P.PN ---
Subjective Progress Note Date: 12/15/24 Principal diagnosis: CVA Ms. Bah is a 64-year-old female with the past medical history of diabetes mellitus, hypertension, hyperlipidemia, uterine cancer, neuropathy coming in with a chief complaint of left and right leg weakness. Patient had an MRI showing acute CVA and CTA of the head and neck showed significant stenosis of 90% in the right ICA. Today the patient is sitting up in a chair by the bedside comfortably. She states that tingling sensation in the left arm and right leg are getting better. She denies having any further weakness. She denies having any chest pain palpitations or difficulty in breathing. No abdominal pain nausea vomiting or diarrhea. Patient's vitals are reviewed and within normal limits. And the patient's labs from this morning reviewed and within normal limits Objective - Vital Signs Vital signs: Vital Signs Temp 96.7 F L 12/15/24 20:00 Pulse 68 12/15/24 20:00 Resp 17 12/15/24 20:00 BP 168/89 12/15/24 20:00 Pulse Ox 99 12/15/24 20:00 FiO2 Intake & Output 12/15/24 12/15/24 12/16/24 06:59 18:59 06:59 Intake Total 1040 Balance 1040 Weight 71.8 kg Intake: Oral 1040 Other: Voiding Method Toilet Toilet # Voids 2 # Bowel Movements 0 - Exam General Impression: Alert and oriented x3, not in acute distress HEENT: pupils equal and reactive to light bilaterally, mucous membranes moist. Cardiovascular: Heart regular rate and rhythm Abdomen: abdomen soft, non-tender, non-distended, no organomegaly Lungs- Bilateral BS - WNL Neurological: CN II-XII grossly intact, Strength - 5/5 in the left upper and right lower extremity Psych: Normal affect and mood - Labs CBC & Chem 7: 12/15/24 05:24 12/15/24 05:24 Labs: Abnormal Lab Results - Last 24 Hours (Table) 12/15/24 12/15/24 12/15/24 Range/Units 05:24 05:24 05:54 RDW 11.4 L (11.5-15.5) % Sodium 136 L (137-145) mmol/L Glucose 126 H (74-99) mg/dL POC Glucose (mg/dL) 154 H (70-110) mg/dL 12/15/24 12/15/24 12/15/24 Range/Units 11:31 16:30 20:18 RDW (11.5-15.5) % Sodium (137-145) mmol/L Glucose (74-99) mg/dL POC Glucose (mg/dL) 124 H 132 H 127 H (70-110) mg/dL Assessment and Plan Assessment: ASSESSMENT Acute CVA Right internal carotid artery 90% stenosis Diabetes mellitus Diabetic neuropathy Hypertension Hyperlipidemia History of uterine cancer PLAN Patient has been started on aspirin statin and Plavix. Due to significant stenosis of the ICA patient is scheduled for carotid endarterectomy on Sunday Physical therapy/Occupational Therapy on board Continue with current medication regimen Further recommendations depending on what is with the patient
[2024-12-15] MEDS: DEXAMETHASONE SOD PHOSPHATE 4 MG/ML 1 ML VIAL IV ONE (22:43)
[2024-12-15] MEDS: ONDANSETRON 4 MG/2 ML VIAL IVP ONE (22:43)
[2024-12-15] MEDS: LACTATED RINGERS 1,000 ML IV SCH (22:43)
[2024-12-16 06:16] LABS: Glucose,Whole Blood 125 mg/dL (70-110)
[2024-12-16] MEDS ORDERED: HYDROmorphone 0.5 MG/0.5 ML SYRINGE IVP PRN (07:00)
--- NOTE | 2024-12-16 07:49 | P.PN ---
Subjective Progress Note Date: 12/16/24 The patient is a pleasant 64-year-old female patient with a past medical history significant for hypertension and dyslipidemia and smoking and diabetes who was admitted to the hospital with an episode of TIA. She underwent further evaluation including carotid duplex study and that revealed critical disease involving the right internal carotid artery and she was seen by a vascular surgeon with a plan to perform right carotid enterectomy and the cardiac consult is for preop cardiac assessment before noncardiac surgery with the patient is asymptomatic and hemodynamically stable with the pressure being consistent with a stage II hypertension at this point. She was started on aspirin and Plavix and statin. She has no history of CAD or heart failure or cardiac arrhythmia and never seen a loan consultant before. Up to the level of activity she is doing she reports no pain in the chest or shortness of breath or dizziness or lightheadedness or any feeling of heart racing or fluttering. She underwent an echo during her hospital stay and that showed normal biventricular dimension and systolic function with no significant valvular abnormalities. The EKG showed sinus mechanism with nonspecific ST and T wave abnormalities noted. The physical examination is remarkable for vital signs as described above with pressure consistent with stage II hypertension and regular rate and rhythm and soft systolic murmur and clear breathing sounds bilaterally and no edema was noted in the lower extremities December 16, 2024 The patient was seen and evaluated this morning which she is asymptomatic and she is hemodynamically stable but she is on dual antiplatelet therapy along with statin with the echo showed normal LV systolic function. The physical examination is remarkable for regular rhythm with a soft systolic murmur and clear lung sounds bilaterally and no edema was noted in the lower extremities Assessment Severe symptomatic carotid atherosclerosis Multiple comorbid conditions including smoking and diabetes and hypertension and dyslipidemia Plan Continue the current medical regimen The patient can proceed with the carotid endarterectomy Objective - Vital Signs Vital signs: Vital Signs Temp 98.0 F 12/16/24 04:00 Pulse 66 12/16/24 04:00 Resp 17 12/16/24 04:00 BP 125/77 12/16/24 04:00 Pulse Ox 98 12/16/24 04:00 FiO2 Intake & Output 12/15/24 12/16/24 12/16/24 18:59 06:59 18:59 Intake Total 1040 Balance 1040 Weight 72.2 kg Intake: Oral 1040 Other: Voiding Method Toilet Toilet # Voids 2 0 0 # Bowel Movements 0 - Labs CBC & Chem 7: 12/15/24 05:24 12/15/24 05:24 Labs: Abnormal Lab Results - Last 24 Hours (Table) 12/15/24 12/15/24 12/15/24 Range/Units 11:31 16:30 20:18 POC Glucose (mg/dL) 124 H 132 H 127 H (70-110) mg/dL 12/16/24 Range/Units 06:15 POC Glucose (mg/dL) 125 H (70-110) mg/dL
--- NOTE | 2024-12-16 11:17 | P.PN ---
Subjective Progress Note Date: 12/16/24 Patient seen and examined. No complaints. No further issues with neurologic finding Objective - Vital Signs Vital signs: Vital Signs Temp 97.9 F 12/16/24 08:35 Pulse 68 12/16/24 08:35 Resp 16 12/16/24 08:35 BP 158/79 12/16/24 08:35 Pulse Ox 100 12/16/24 08:35 FiO2 Intake & Output 12/15/24 12/16/24 12/16/24 18:59 06:59 18:59 Intake Total 1040 240 Balance 1040 240 Weight 72.2 kg Intake: Oral 1040 240 Other: Voiding Method Toilet Toilet Toilet # Voids 2 0 0 # Bowel Movements 0 - Exam General Is a pleasant cooperative female in no acute distress. Heart appears regular. Lungs are clear. Abdomen is soft. Cranial nerves II through XII grossly intact - Labs CBC & Chem 7: 12/15/24 05:24 12/15/24 05:24 Labs: Abnormal Lab Results - Last 24 Hours (Table) 12/15/24 12/15/24 12/15/24 Range/Units 11:31 16:30 20:18 POC Glucose (mg/dL) 124 H 132 H 127 H (70-110) mg/dL 12/16/24 Range/Units 06:15 POC Glucose (mg/dL) 125 H (70-110) mg/dL Assessment and Plan Assessment: High-grade right ICA stenosis, likely symptomatic History of CVA Diabetes Hypertension Tobacco abuse Plan: Patient cleared from cardiac standpoint. Plan for right carotid endarterectomy patch angioplasty tomorrow. Nothing to eat or drink after midnight. Continue Plavix and aspirin. Discussed with patient's daughter as well as the patient. Questions were answered.
[2024-12-16 11:31] LABS: Glucose,Whole Blood 131 mg/dL (70-110)
[2024-12-16] MEDS ORDERED: GABAPENTIN 300 MG CAP PO PRN (13:46)
--- NOTE | 2024-12-16 13:52 | P.PN ---
Subjective Progress Note Date: 12/16/24 I am following-up with patient and states continues having some numbness over the left finger tips. Has headache. But denies any new neurological issues. Objective - Vital Signs Vital signs: Vital Signs Temp 97.9 F 12/16/24 08:35 Pulse 67 12/16/24 11:35 Resp 16 12/16/24 11:35 BP 165/79 12/16/24 11:35 Pulse Ox 100 12/16/24 11:35 FiO2 Intake & Output 12/15/24 12/16/24 12/16/24 18:59 06:59 18:59 Intake Total 1040 240 Balance 1040 240 Weight 72.2 kg Intake: Oral 1040 240 Other: Voiding Method Toilet Toilet Toilet # Voids 2 0 0 # Bowel Movements 0 - Exam General is lying in bed and is not in acute distress. Neuro: The patient is awake alert oriented to self place and time. Is following simple commands. No aphasia. Visual mclean are full to confrontation. No facial weakness. No dysarthria Motor is left forearm flexion is 5-. Otherwise 5/5. Sensation: Normal to touch throughout. - Labs CBC & Chem 7: 12/15/24 05:24 12/15/24 05:24 Labs: Abnormal Lab Results - Last 24 Hours (Table) 12/15/24 12/15/24 12/16/24 Range/Units 16:30 20:18 06:15 POC Glucose (mg/dL) 132 H 127 H 125 H (70-110) mg/dL 12/16/24 Range/Units 11:26 POC Glucose (mg/dL) 131 H (70-110) mg/dL Assessment and Plan Assessment: * Acute to subacute ischemic stroke (stroke over the right occipital and sca ttered over the right frontal parietal region on the MRI). Recurrent symptoms of with left arm and hand weakness, numbness and sometimes involving left facial region and left leg, likely due to symptomatic right ICA stenosis. Current NIH is 0. * Right ICA stenosis 90%, per CTA, symptomatic * Probable history of CVA 5-6 months ago manifesting with right leg weakness, that lasted for a week and then resolved. Patient did not seek medical attention at that time. CT head revealed remote stroke involving the left anterior limb of internal capsule. * Hypertension, accelerated * Diabetes * Hyperlipidemia * Tobacco use Plan: MRI of the brain without contrast: Acute to subacute ischemic predominantly in the right occipital lobe with additional scattered foci involving the right frontal parietal. Remote injuries with encephalomalacia involving the left basal ganglia, flores radiata and left frontal lobe periventricular region. 2-D echo revealed LVEF 55 to 60%. Mildly increased posterior wall thickness. Mildly increased left ventricular diastolic volume. No obvious regional wall motion abnormalities. Normal left and right atrial size. No intracardiac masses. CTA head and neck showed: Significant stenosis estimated 90% proximal right ICA. Advised vascular surgical consultation. Vascular surgical consultation: surgery planned for tomorrow. Fasting a.m. lipid panel: Triglyceride is 228, cholesterol is 249, LDL is 171 and HDL is 31. Hemoglobin A1c 6.0 Patient was not taking any antiplatelet medication at home. Because of recurrent symptoms, patient has been loaded with aspirin and Plavix. Continue aspirin 325 mg and Plavix 75 mg daily Continue Lipitor 40mg qhs for secondary stroke prophylaxis. For headache I started the patient on gabapentin 300 mg 1 tablet 3 times daily as needed. She is on Tylenol and feels Tylenol is ineffective. Neuro checks Telemetry monitoring rule out any arrhythmia PT, OT, speech therapy DVT prophylaxis: Heparin 5000 units subcu every 12 hours Patient on Protonix for gastric ulcer prophylaxis. Time with Patient: Less than 30
[2024-12-16 16:13] LABS: Glucose,Whole Blood 148 mg/dL (70-110)
[2024-12-16 20:07] LABS: Glucose,Whole Blood 134 mg/dL (70-110)
[2024-12-16] MEDS: Acetaminophen-Codeine 300-30mg TAB PO PRN (20:16)
[2024-12-17 06:06] LABS: Glucose,Whole Blood 105 mg/dL (70-110)
[2024-12-17 06:46] LABS: Basophils % (A) 1 %; Eosinophils # (A) 0.1 k/uL (0-0.7); Eosinophils % (A) 2 %; HGB 14.2 gm/dL (11.4-16.0); Lymphocytes % (A) 53 %; MCH 31.5 pg (25.0-35.0); MCHC 33.8 g/dL (31.0-37.0); MCV 93.1 fL (80.0-100.0); Monocytes # (A) 0.3 k/uL (0-1.0); Monocytes % (A) 6 %; Neutrophils % (A) 35 %; Platelet Count 274 k/uL (150-450); RBC 4.51 m/uL (3.80-5.40); RDW 11.4 % (11.5-15.5); WBC 5.7 k/uL (3.8-10.6)
[2024-12-17 07:12] LABS: African American GFR (CKD) >90 (>60 ml/min/1.73 sqM); Anion Gap 6 mmol/L; Blood Urea Nitrogen 10 mg/dL (7-17); Calcium 8.9 mg/dL (8.4-10.2); Carbon Dioxide 25 mmol/L (22-30); Chloride 104 mmol/L (98-107); Glucose 107 mg/dL (74-99); Non-African American GFR(CKD) >90 (>60 ml/min/1.73 sqM); Potassium 4.1 mmol/L (3.5-5.1); Sodium 135 mmol/L (137-145)
--- NOTE | 2024-12-17 09:36 | P.PN ---
Subjective Progress Note Date: 12/16/24 CVA Ms. Bah is a 64-year-old female with the past medical history of diabetes mellitus, hypertension, hyperlipidemia, uterine cancer, neuropathy coming in with a chief complaint of left and right leg weakness. Patient had an MRI showing acute CVA and CTA of the head and neck showed significant stenosis of 90% in the right ICA. Today the patient is sitting up in a chair by the bedside comfortably. She states that tingling sensation in the left arm and right leg are getting better. She denies having any further weakness. She denies having any chest pain palpitations or difficulty in breathing. No abdominal pain nausea vomiting or diarrhea. Patient's vitals are reviewed and within normal limits. And the patient's labs from this morning reviewed and within normal limits 12/16/2024 Patient is seen in follow-up today with multiple consultations following. Patient is scheduled to undergo carotid intervention with vascular surgery tomorrow. Patient will be n.p.o. at midnight. Patient continues report some dizziness when position changing. Patient is currently maintained on aspirin, Plavix, statin therapy and subcutaneous heparin. Will await vascular surgery report. Patient denies any chest pain or palpitations. Patient denies nausea or vomiting and has been tolerating diet. Review of systems: Constitutional: No reports of fatigue, fever, or chills Cardiovascular: No reports of chest pain or palpitations Respiratory: No reports of shortness of breath or cough GI: No reports of nausea, vomiting, or diarrhea : No reports of dysuria or retention Neurovascular: No reports of weakness, reports continued dizziness especially with position changes All medications have been reviewed Physical exam: Gen: This is a 64-year-old female who is awake, alert and oriented x 3, well- developed, well-nourished currently sitting up in the chair HEENT: Head is atraumatic, normocephalic. Pupils equal, round. Sclerae is anicteric. NECK: Supple. No JVD. No lymphadenopathy. No thyromegaly. LUNGS: Diminished breath sounds bilaterally otherwise clear to auscultation. No wheezes or rhonchi. No intercostal retractions. HEART: Regular rate and rhythm. No murmur. ABDOMEN: Soft. Bowel sounds are present. No masses. No tenderness. EXTREMITIES: No pedal edema. No calf tenderness. Strength of bilateral upper and lower extremities 5/5 NEUROLOGICAL: Patient is awake, alert and oriented x3. Cranial nerves 2 through 12 are grossly intact. Assessment: Acute CVA over the right occipital and scattered over the right frontal parietal region as noted on MRI Right internal carotid artery 90% stenosis, scheduled to undergo vascular surgery intervention on 12/17/2024 History of previous stroke as noted on imaging reporting remote stroke involving the left anterior limb of internal capsule on MRI, patient did not seek medical attention at that time and symptoms had resolved Diabetes mellitus Diabetic neuropathy Hypertension, uncontrolled Hyperlipidemia History of uterine cancer Continued ongoing nicotine dependence GI prophylaxis DVT prophylaxis Full code Plan: Patient has been started on aspirin statin and Plavix. Patient also on subcutaneous heparin and will discuss further with vascular surgery if medications need to be held prior to intervention Patient will be n.p.o. and scheduled for carotid endarterectomy on Sunday due to significant ICA stenosis Physical therapy/Occupational Therapy on board Continue with current medication regimen Continue with supportive care as patient continues to report headache with some dizziness with position changes. Will await surgical report and discussed with other consultations regarding discharge planning. Patient reports she will be going home on discharge The impression and plan of care has been dictated by Anita Jimenez, Nurse Practitioner as directed. Dr. Gonzalo MD I have performed a history and examination and MDM of this patient, discussed the same with the dictator, and agree with the dictator's assessment and plan as written ,documented as a scribe. Based on total visit time, I have performed more than 50% of the visit. Objective - Vital Signs Vital signs: Vital Signs Temp 97.9 F 12/16/24 08:35 Pulse 68 12/16/24 08:35 Resp 16 12/16/24 08:35 BP 158/79 12/16/24 08:35 Pulse Ox 100 12/16/24 08:35 FiO2 Intake & Output 12/15/24 12/16/24 12/16/24 18:59 06:59 18:59 Intake Total 1040 240 Balance 1040 240 Weight 72.2 kg Intake: Oral 1040 240 Other: Voiding Method Toilet Toilet Toilet # Voids 2 0 0 # Bowel Movements 0 - Labs CBC & Chem 7: 12/17/24 06:22 12/17/24 06:22 Labs: Abnormal Lab Results - Last 24 Hours (Table) 12/15/24 12/15/2412/15/25 Range/Units 11:31 16:30 20:18 POC Glucose (mg/dL) 124 H 132 H 127 H (70-110) mg/dL 12/16/24 Range/Units 06:15 POC Glucose (mg/dL) 125 H (70-110) mg/dL
[2024-12-17] MEDS: IV FLUID CONTINUATION 1,000 ML IV ONE (10:30)
[2024-12-17 10:41] LABS: Glucose,Whole Blood 130 mg/dL (70-110)
[2024-12-17] MEDS: MIDAZOLAM 2 MG/2 ML VIAL IV ONE (10:42)
[2024-12-17] MEDS: FAMOTIDINE 20 MG/2 ML VIAL IV STA (10:56)
[2024-12-17] MEDS ORDERED: PROTAMINE SULFATE 10 MG/ML 5 ML VIAL ONE (11:39)
[2024-12-17] MEDS ORDERED: PROPOFOL 10 MG/ML 20 ML VIAL IV ONE (11:39)
[2024-12-17] MEDS ORDERED: SUCCINYLCHOLINE CHLORIDE 200 MG/10 ML VIAL IV ONE (11:39)
[2024-12-17] MEDS ORDERED: NEOSTIGMINE 1 MG/ML 10 ML VIAL ONE (11:39)
[2024-12-17] MEDS ORDERED: HEPARIN SODIUM,PORCINE 10,000 UNIT/ML 1 ML VIAL ONE (11:39)
[2024-12-17] MEDS ORDERED: LIDOCAINE 4% LTA KIT (4 ML) TOPICAL ONE (11:39)
[2024-12-17] MEDS ORDERED: hydrALAZINE HCL 20 MG/ML 1 ML VIAL ONE (11:39)
[2024-12-17] MEDS ORDERED: ROCURONIUM 10 MG/ML (5 ML VIAL) IV ONE (11:39)
[2024-12-17] MEDS ORDERED: PHENYLEPHRINE 10 MG/ML VIAL ONE (11:39)
[2024-12-17] MEDS ORDERED: LIDOCAINE 1% INJ 10MG/ML (20 ML MDV) ONE (11:39)
[2024-12-17] MEDS ORDERED: fentaNYL (PF) 50 MCG/ML 2 ML AMP ONE (11:39)
[2024-12-17] MEDS ORDERED: NITROGLYCERIN-D5W PMX 50 MG/250 ML BOTTLE IV ONE (11:39)
[2024-12-17] MEDS ORDERED: GLYCOPYRROLATE 0.2 MG/ML 2 ML VIAL ONE (11:39)
[2024-12-17] MEDS: LACTATED RINGERS 1,000 ML IV ONE ×3 (11:44→14:40)
[2024-12-17] MEDS: SODIUM CHLORIDE 0.9% 50 ML with ceFAZolin 2,000 MG IV ONE (12:14)
[2024-12-17] MEDS: HEPARIN SODIUM (1,000 UNIT/ML) 2,000 UNIT in SODIUM CHLORIDE 0.9% 1,000 ML IRRIGATION ONE (12:15)
[2024-12-17] MEDS: ceFAZolin 2 GM in SODIUM CHLORIDE 0.9% 500 ML 500 ML IRRIGATION ONE (12:16)
[2024-12-17] MEDS: LIDOCAINE 1% INJ 10MG/ML (20 ML MDV) SQ ONE (12:35)
[2024-12-17] MEDS: THROMBIN (BOVINE) 5,000 UNIT VIAL MISCELLANE ONE (13:33)
[2024-12-17] MEDS ORDERED: MORPHINE SULFATE 2 MG/ML SYRINGE IVP PRN (14:30)
[2024-12-17] MEDS ORDERED: BENZOCAINE/MENTHOL LOZENG 1 EACH LOZENGE MUCOUS MEM PRN (14:30)
--- NOTE | 2024-12-17 14:30 | P.OP ---
Date of Procedure: 12/17/24 Description of Procedure: Preoperative Diagnosis: High-grade symptomatic right internal carotid artery stenosis Postoperative Diagnosis: Same Procedure: Right carotid endarterectomy with patch angioplasty Anesthesia: GET Surgeon: Dolores Simon DO Estimated Blood Loss (ml): 75 cc IV Fluids: See records Urine Output: See records Specimen: Right carotid plaque, right cervical lymph nodes Condition: stable Disposition: PACU Findings and indications: Patient is a 64-year-old female with high-grade right internal carotid artery stenosis who had issues with left-handed weakness previously consistent with TIA. She stayed in the hospital for intervention. Risk and benefits were discussed. She seemed understood and plan undergo a carotid endarterectomy and patch angioplasty. Procedure in detail: the patient is brought to the operative suite and laid in a supine position. The area of the neck was prepped and draped in usual sterile fashion after appropriate anesthetic.. A timeout was performed in normal fashion antibiotics were administered prior to incision. An oblique incision was then created just anterior to the sternocleidomastoid musculature with a 10 blade scalpel and dissection was carried down to the carotid sheath. The carotid sheath was then entered after facial vein was loc ated and suture ligated in normal fashion. The common carotid, internal carotid, external carotid and superior thyroid arteries were located and dissected free in a meticulous fashion circumferentially and controlled with vessel loops. At the level of the internal carotid artery, there was significant chronic inflammatory changes noted attention was then placed to locating the vagus nerve as well as hypoglossal nerve which were both spared. Once controlled, patient was administered heparin and followed with ACTs for appropriate heparinization. Once ACT was appropriate, the proximal and distal aspects of the dissection were then controlled with vascular clamps. Arteriotomy was then created with 11 blade scalpel and extended with Gonzalez Wylie scissors. Upon clamping previously to the arteriotomy, the cerebral oximetry was reviewed and there was no significant change therefore no shunt was required. An endarterectomy was then performed with a [place] elevator. The plaque was transected proximally and then feathered at the distal aspect of the internal carotid artery and removed. The area was copiously irrigated with heparinized saline and all free debris was removed. A 0.8 x 8 cm bovine pericardial patch was then chosen and patch angioplasty was performed with 6-0 Prolene suture in a running fashion. Prior to last sutures being placed the inflow was released flushing any free debris out of the patch. This was reclamped and the internal carotid artery was released revealing good brisk flow and was once again reclamped. The external carotid and superior thyroid artery were then released followed by the common carotid artery to allow any free debris to be flushed into the external system. Final sutures were placed and secured. Internal carotid artery control was then released. Good pulsatile flow was noted through the patch and a Doppler was utilized demonstrating good brisk flow into the internal, external carotid arteries without any signs of obstruction. Hemostasis was then assured with interrupted sutures of 6-0 Prolene as well as thrombin and Gelfoam. A 10-Ind[place] ADILENE drain was then placed in normal fashion and secured with 3-0 nylon suture. The incision was then closed in a multilayer fashion after hemostasis was assured. The skin was then cleansed and dressings were placed. Patient tolerated the procedure well and was following commands and moving all extremities. Patient was then sent to PACU for recovery.
[2024-12-17 14:36] LABS: Glucose,Whole Blood 188 mg/dL (70-110)
[2024-12-17 16:29] LABS: Glucose,Whole Blood 218 mg/dL (70-110)
[2024-12-17 20:08] LABS: Glucose,Whole Blood 135 mg/dL (70-110)
[2024-12-17] MEDS ORDERED: DEXTROSE 50% SYRINGE 50 ML IVP PRN ×2 (22:54)
--- NOTE | 2024-12-18 05:54 | P.PN ---
Subjective Progress Note Date: 12/17/24 CVA Ms. Bah is a 64-year-old female with the past medical history of diabetes mellitus, hypertension, hyperlipidemia, uterine cancer, neuropathy coming in with a chief complaint of left and right leg weakness. Patient had an MRI showing acute CVA and CTA of the head and neck showed significant stenosis of 90% in the right ICA. Today the patient is sitting up in a chair by the bedside comfortably. She states that tingling sensation in the left arm and right leg are getting better. She denies having any further weakness. She denies having any chest pain palpitations or difficulty in breathing. No abdominal pain nausea vomiting or diarrhea. Patient's vitals are reviewed and within normal limits. And the patient's labs from this morning reviewed and within normal limits 12/16/2024 Patient is seen in follow-up today with multiple consultations following. Patient is scheduled to undergo carotid intervention with vascular surgery tomorrow. Patient will be n.p.o. at midnight. Patient continues report some dizziness when position changing. Patient is currently maintained on aspirin, Plavix, statin therapy and subcutaneous heparin. Will await vascular surgery report. Patient denies any chest pain or palpitations. Patient denies nausea or vomiting and has been tolerating diet. 12/17/2024 Patient is seen in follow-up today currently n.p.o. scheduled to undergo right carotid endarterectomy today. Will await official report from vascular surgery and other consultations including neurology are following. Will continue statin therapy along with antiplatelets and discuss further with consultations regarding discharge planning and outpatient follow-up. Patient reports she will be returning home on discharge. Patient is currently afebrile with no reports of chest pain or shortness of breath. Review of systems: Constitutional: No reports of fatigue, fever, or chills Cardiovascular: No reports of chest pain or palpitations Respiratory: No reports of shortness of breath or cough GI: No reports of nausea, vomiting, or diarrhea : No reports of dysuria or retention Neurovascular: No reports of weakness, reports continued intermittent dizziness especially with position changes All medications have been reviewed Physical exam: Gen: This is a 64-year-old female who is awake, alert and oriented x 3, well- developed, well-nourished HEENT: Head is atraumatic, normocephalic. Pupils equal, round. Sclerae is anicteric. NECK: Supple. No JVD. No lymphadenopathy. No thyromegaly. LUNGS: Diminished breath sounds bilaterally otherwise clear to auscultation. No wheezes or rhonchi. No intercostal retractions. HEART: Regular rate and rhythm. No murmur. ABDOMEN: Soft. Bowel sounds are present. No masses. No tenderness. EXTREMITIES: No pedal edema. No calf tenderness. Strength of bilateral upper and lower extremities 5/5 NEUROLOGICAL: Patient is awake, alert and oriented x3. Cranial nerves 2 through 12 are grossly intact. Assessment: Acute CVA over the right occipital and scattered over the right frontal parietal region as noted on MRI Right internal carotid artery 90% stenosis, scheduled to undergo vascular surgery intervention today 12/17/2024 History of previous stroke as noted on imaging reporting remote stroke involving the left anterior limb of internal capsule on MRI, patient did not seek medical attention at that time and symptoms had resolved Diabetes mellitus, type II, uncontrolled with hyperglycemia Diabetic neuropathy Hypertension, uncontrolled Hyperlipidemia History of uterine cancer Continued ongoing nicotine dependence GI prophylaxis DVT prophylaxis Full code Plan: Patient has been started on aspirin statin and Plavix. Patient scheduled to undergo right carotid endarterectomy with vascular surgery today Patient is currently n.p.o. and will await vascular surgery report. Diet to be resumed per surgery Physical therapy/Occupational Therapy on board. Patient is up and walking and reports will be going home on discharge Continue with current medication regimen Patient is a diabetic recommend monitoring Accu-Cheks ACHS and will use sliding scale as needed Continue with supportive care as patient continues to report headache with some dizziness with position changes. Will await surgical report and discussed with other consultations regarding discharge planning. Due to multiple complex medical issues, overall prognosis is guarded The impression and plan of care has been dictated by Anita Jimenez, Nurse Practitioner as directed. Dr. Gonzalo MD I have performed a history and examination and MDM of this patient, discussed the same with the dictator, and agree with the dictator's assessment and plan as written ,documented as a scribe. Based on total visit time, I have performed more than 50% of the visit. Objective - Vital Signs Vital signs: Vital Signs Temp 96.5 F L 12/17/24 10:18 Pulse 68 12/17/24 11:00 Resp 12 12/17/24 11:00 BP 195/87 12/17/24 11:00 Pulse Ox 100 12/17/24 11:00 FiO2 Intake & Output 12/16/24 12/17/24 12/17/24 18:59 06:59 18:59 Intake Total 480 120 Balance 480 120 Weight 72.1 kg Intake: Oral 480 120 Other: Voiding Method Toilet Toilet Toilet # Voids 3 0 1 - Labs CBC & Chem 7: 12/17/24 06:22 12/17/24 06:22 Labs: Abnormal Lab Results - Last 24 Hours (Table) 12/16/24 12/16/24 12/16/24 Range/Units 11:26 16:12 20:05 RDW (11.5-15.5) % Sodium (137-145) mmol/L Glucose (74-99) mg/dL POC Glucose (mg/dL) 131 H 148 H 134 H (70-110) mg/dL 12/17/24 12/17/24 12/17/24 Range/Units 06:22 06:22 10:39 RDW 11.4 L (11.5-15.5) % Sodium 135 L (137-145) mmol/L Glucose 107 H (74-99) mg/dL POC Glucose (mg/dL) 130 H (70-110) mg/dL
[2024-12-18 06:07] LABS: Glucose,Whole Blood 111 mg/dL (70-110)
[2024-12-18] MEDS: INSULIN LISPRO (HumaLOG) 100 UNIT/ML 10 mL VL SQ SCH (06:11)
[2024-12-18] MEDS: hydrALAZINE HCL 20 MG/ML 1 ML VIAL IVP PRN (06:15)
[2024-12-18 09:29] LABS: Basophils % (A) 0 %; Eosinophils # (A) 0.1 k/uL (0-0.7); Eosinophils % (A) 1 %; HCT 39.5 % (34.0-46.0); HGB 13.4 gm/dL (11.4-16.0); Lymphocytes # (A) 3.3 k/uL (1.0-4.8); Lymphocytes % (A) 33 %; MCH 31.6 pg (25.0-35.0); MCHC 33.9 g/dL (31.0-37.0); MCV 93.2 fL (80.0-100.0); Mean Platelet Volume 7.2; Monocytes # (A) 0.7 k/uL (0-1.0); Monocytes % (A) 7 %; Neutrophils # (A) 5.9 k/uL (1.3-7.7); Neutrophils % (A) 58 %; Platelet Count 268 k/uL (150-450); RBC 4.24 m/uL (3.80-5.40); RDW 11.4 % (11.5-15.5); WBC 10.2 k/uL (3.8-10.6)
--- NOTE | 2024-12-18 09:37 | P.PN ---
Subjective Progress Note Date: 12/18/24 The patient is a pleasant 64-year-old female patient with a past medical history significant for hypertension and dyslipidemia and smoking and diabetes who was admitted to the hospital with an episode of TIA. She underwent further evaluation including carotid duplex study and that revealed critical disease involving the right internal carotid artery and she was seen by a vascular surgeon with a plan to perform right carotid enterectomy and the cardiac consult is for preop cardiac assessment before noncardiac surgery with the patient is asymptomatic and hemodynamically stable with the pressure being consistent with a stage II hypertension at this point. She was started on aspirin and Plavix and statin. She has no history of CAD or heart failure or cardiac arrhythmia and never seen a casing cleaner before. Up to the level of activity she is doing she reports no pain in the chest or shortness of breath or dizziness or lightheadedness or any feeling of heart racing or fluttering. She underwent an echo during her hospital stay and that showed normal biventricular dimension and systolic function with no significant valvular abnormalities. The EKG showed sinus mechanism with nonspecific ST and T wave abnormalities noted. The physical examination is remarkable for vital signs as described above with pressure consistent with stage II hypertension and regular rate and rhythm and soft systolic murmur and clear breathing sounds bilaterally and no edema was noted in the lower extremities December 16, 2024 The patient was seen and evaluated this morning which she is asymptomatic and she is hemodynamically stable but she is on dual antiplatelet therapy along with statin with the echo showed normal LV systolic function. The physical examination is remarkable for regular rhythm with a soft systolic murmur and clear lung sounds bilaterally and no edema was noted in the lower extremities December 18, 2024 The patient was seen and evaluated this morning she underwent right carotid endarterectomy yesterday was uneventful. Clinically she is doing well. She is asymptomatic. The pressure is consistent with stage II hypertension and to be managed by the surgical team. She is on intermediate intensity statin which is going to increase to high intensity. She is on dual antiplatelet therapy. The physical examination overall is unremarkable Assessment Severe symptomatic carotid atherosclerosis Multiple comorbid conditions including smoking and diabetes and hypertension and dyslipidemia Plan Continue the current medical regimen with increasing the dose of atorvastatin Follow-up with the patient Objective - Vital Signs Vital signs: Vital Signs Temp 98.1 F 12/18/24 08:00 Pulse 77 12/18/24 08:00 Resp 18 12/18/24 08:00 BP 144/70 12/18/24 08:00 Pulse Ox 97 12/18/24 08:00 FiO2 Intake & Output 12/17/24 12/18/24 12/18/24 18:59 06:59 18:59 Intake Total 2152 Output Total 895 15 Balance 1257 -15 Weight 72 kg Intake: IV 2151 Output: Drainage 20 15 Right Anterior Neck 20 15 Urine 800 Estimated Blood Loss 75 Other: Voiding Method Indwelling Catheter Indwelling Catheter # Voids 1 - Labs CBC & Chem 7: 12/18/24 08:15 12/17/24 06:22 Labs: Abnormal Lab Results - Last 24 Hours (Table) 12/17/24 12/17/24 12/17/24 Range/Units 10:39 14:33 16:27 RDW (11.5-15.5) % POC Glucose (mg/dL) 130 H 188 H 218 H (70-110) mg/dL 12/17/24 12/18/24 12/18/24 Range/Units 20:06 06:05 08:15 RDW 11.4 L (11.5-15.5) % POC Glucose (mg/dL) 135 H 111 H (70-110) mg/dL
[2024-12-18 09:40] LABS: Carbon Dioxide 25 mmol/L (22-30); Chloride 104 mmol/L (98-107); Glucose 117 mg/dL (74-99); Potassium 3.9 mmol/L (3.5-5.1); Sodium 136 mmol/L (137-145)
[2024-12-18 09:41] LABS: African American GFR (CKD) >90 (>60 ml/min/1.73 sqM); Anion Gap 7 mmol/L; Blood Urea Nitrogen 11 mg/dL (7-17); Calcium 9.2 mg/dL (8.4-10.2); Non-African American GFR(CKD) >90 (>60 ml/min/1.73 sqM)
[2024-12-18 11:37] LABS: Glucose,Whole Blood 161 mg/dL (70-110)
[2024-12-18 12:26] VITALS: BP 133/71; RESP 17; TEMP 97.8
--- NOTE | 2024-12-18 13:06 | P.PN ---
Subjective Progress Note Date: 12/18/24 I am following-up with patient and yesterday she had right carotid endartectomy. Today has mild dizzy but has not issues getting around and no focal deficits. Objective - Vital Signs Vital signs: Vital Signs Temp 97.8 F 12/18/24 12:00 Pulse 77 12/18/24 12:00 Resp 17 12/18/24 12:00 BP 133/71 12/18/24 12:00 Pulse Ox 97 12/18/24 08:00 FiO2 Intake & Output 12/17/24 12/18/24 12/18/24 18:59 06:59 18:59 Intake Total 2152 Output Total 895 15 0 Balance 1257 -15 0 Weight 72 kg Intake: IV 2 Output: Drainage 20 15 0 Right Anterior Neck 20 15 0 Urine 800 Estimated Blood Loss 75 Other: Voiding Method Indwelling Catheter Indwelling Catheter # Voids 1 - Exam General is sitting in side of bed and is not in acute distress. Neuro: The patient is awake alert oriented to self place and time. Is following simple commands. No aphasia. Visual mclean are full to confrontation. No facial weakness. No dysarthria Motor is left forearm flexion is 5-. Otherwise 5/5. Sensation: Normal to touch throughout. - Labs CBC & Chem 7: 12/18/24 08:15 12/18/24 08:15 Labs: Abnormal Lab Results - Last 24 Hours (Table) 12/17/24 12/17/24 12/17/24 Range/Units 14:33 16:27 20:06 RDW (11.5-15.5) % Sodium (137-145) mmol/L Glucose (74-99) mg/dL POC Glucose (mg/dL) 188 H 218 H 135 H (70-110) mg/dL 12/18/24 12/18/24 12/18/24 Range/Units 06:05 08:15 08:15 RDW 11.4 L (11.5-15.5) % Sodium 136 L (137-145) mmol/L Glucose 117 H (74-99) mg/dL POC Glucose (mg/dL) 111 H (70-110) mg/dL 12/18/24 Range/Units 11:35 RDW (11.5-15.5) % Sodium (137-145) mmol/L Glucose (74-99) mg/dL POC Glucose (mg/dL) 161 H (70-110) mg/dL Assessment and Plan Assessment: * Acute to subacute ischemic stroke (stroke over the right occipital and scattered over the right frontal parietal region on the MRI). Recurrent symptoms of with left arm and hand weakness, numbness and sometimes involving left facial region and left leg, likely due to symptomatic right ICA stenosis. Current NIH is 0. * Right ICA stenosis 90%, per CTA, symptomatic s/p right carotid endartectomy * Probable history of CVA 5-6 months ago manifesting with right leg weakness, that lasted for a week and then resolved. Patient did not seek medical attention at that time. CT head revealed remote stroke involving the left anterior limb of internal capsule. * Hypertension, accelerated * Diabetes * Hyperlipidemia * Tobacco use Plan: MRI of the brain without contrast: Acute to subacute ischemic predominantly in the right occipital lobe with additional scattered foci involving the right frontal parietal. Remote injuries with encephalomalacia involving the left basal ganglia, flores radiata and left frontal lobe periventricular region. 2-D echo revealed LVEF 55 to 60%. Mildly increased posterior wall thickness. Mildly increased left ventricular diastolic volume. No obvious regional wall motion abnormalities. Normal left and right atrial size. No intracardiac masses. CTA head and neck showed: Significant stenosis estimated 90% proximal right ICA. Advised vascular surgical consultation. Fasting a.m. lipid panel: Triglyceride is 228, cholesterol is 249, LDL is 171 and HDL is 31. Hemoglobin A1c 6.0 Patient was not taking any antiplatelet medication at home. Because of recurrent symptoms, patient has been loaded with aspirin and Plavix. Continue aspirin 325 mg and Plavix 75 mg daily Continue Lipitor 40mg qhs for secondary stroke prophylaxis. For headache I started the patient on gabapentin 300 mg 1 tablet 3 times daily as needed. She is on Tylenol and feels Tylenol is ineffective. Neuro checks Telemetry monitoring rule out any arrhythmia PT, OT, speech therapy DVT prophylaxis: Heparin 5000 units subcu every 12 hours Patient on Protonix for gastric ulcer prophylaxis. Upon discharge, recommend the patient to follow-up with neurologist as outpatient within 2-3 weeks. Otherwise, no additional neurological work-up. Will sign off. Please reconsult if needed. Time with Patient: Less than 30
[2024-12-18 14:48] VITALS: PULSE 81
[2024-12-18] MEDS ORDERED: ATORVASTATIN 80 MG TAB PO SCH (21:00)
--- NOTE | 2024-12-22 15:50 | P.DS ---
Providers Date of admission: 12/13/24 13:56 Expected date of discharge: 12/18/24 Attending physician: Omar Joseph MD Consults: 12/13/24 13:29 Consult Physician Urgent Consulting Provider: Dolores Husain Consult Reason/Comments: carotid stenosis Do you want consulting provider notified?: Yes 12/13/24 13:55 Consult Physician Urgent Consulting Provider: Mirian Hope Consult Reason/Comments: cva Do you want consulting provider notified?: Yes 12/14/24 12:33 Consult Physician Urgent Consulting Provider: Piotr Badillo Consult Reason/Comments: cardiac clearance, planning carotid endart Sunday 12/17 Do you want consulting provider notified?: Yes Primary care physician: Dayron Rothman Hospital Course: Final diagnosis Acute CVA over the right occipital and scattered over the right frontal parietal region as noted on MRI Right internal carotid artery 90% stenosis, status post right endarterectomy with patch angioplasty History of previous stroke as noted on imaging reporting remote stroke involving the left anterior limb of internal capsule on MRI, patient did not seek medical attention at that time and symptoms had resolved Diabetes mellitus, type II, uncontrolled with hyperglycemia Diabetic neuropathy Hypertension, uncontrolled Hyperlipidemia History of uterine cancer Continued ongoing nicotine dependence GI prophylaxis DVT prophylaxis Full code Discharge disposition Patient is being discharged in a stable condition with guarded prognosis to home. Patient will follow-up with Dr. Rothman in the outpatient setting upon discharge. Patient is to continue with current medications and close outpatient follow-up with cardiology, vascular surgery, and neurology as scheduled. Total time taken is greater than 35 minutes. Hospital course This is a 64-year-old female who was recently admitted with noted CVA on the right occipital with scattered findings over the right frontal parietal on MRI being closely monitored undergoing neurological workup. Patient also noted to have significant stenosis on the right internal carotid artery and is status post right endarterectomy with patch angioplasty with vascular surgery and has been cleared. Patient with uncontrolled blood pressure being monitored by cardiology making adjustments to medications. Patient with extensive ongoing comorbidities recommends close outpatient follow-up with primary care provider as well as consultations in the outpatient setting. Patient has been cleared by consults for discharge home today. Please refer to other consultation notes for further HPI. Currently no reports of chest pain, shortness of breath, or palpitations. Patient is afebrile. No reports of nausea or vomiting and patient is tolerating diet. Patient will be discharged home today. Guarded prognosis and high risk for readmissions given significant comorbidities. Physical exam: Gen: This is a 64-year-old female who is awake, alert and oriented x 3, thin built, appears older than stated age, well-developed HEENT: Head is atraumatic, normocephalic. Pupils equal, round. Sclerae is anicteric. NECK: Supple. No JVD. No lymphadenopathy. No thyromegaly. LUNGS: Diminished breath sounds bilaterally otherwise clear to auscultation. No wheezes or rhonchi. No intercostal retractions. HEART: S1, S2 are muffled ABDOMEN: Soft. Bowel sounds are present. No masses. No tenderness. EXTREMITIES: No pedal edema. No calf tenderness. NEUROLOGICAL: Patient is awake, alert and oriented x3. Cranial nerves 2 through 12 are grossly intact. Please refer to medication reconciliation sheet for a list of medications. The impression and plan of care has been dictated by Anita Jimenez, Nurse Practitioner as directed. Dr. Gonzalo MD I have performed a history and examination and MDM of this patient, discussed the same with the dictator, and agree with the dictator's assessment and plan as written ,documented as a scribe. Based on total visit time, I have performed more than 50% of the visit. Patient Condition at Discharge: Stable Plan - Discharge Summary Discharge Rx Participant: No New Discharge Prescriptions: New Pantoprazole [Protonix] 40 mg PO AC-BRKFST #30 tab Acetaminophen-Codeine 300-30mg [Tylenol w/codeine #3] 1 each PO Q6HR PRN #10 tab PRN Reason: Pain Aspirin 81 mg PO DAILY #30 tab Atorvastatin [Lipitor] 80 mg PO HS #30 tab amLODIPine [Norvasc] 5 mg PO DAILY #30 tab Clopidogrel [Plavix] 75 mg PO DAILY #30 tab Acetaminophen Tab [Tylenol] 650 mg PO Q6HR PRN tab PRN Reason: Fever And/ Or Pain Gabapentin [Neurontin] 300 mg PO TID PRN #30 cap PRN Reason: Pain Continue Losartan Potassium [Cozaar] 100 mg PO DAILY Ibuprofen/Acetaminophen [Advil Dual Action 125MG(IBU)-250MG(ACET)] 3 tab PO Q8H PRN PRN Reason: Pain Dapagliflozin Propanediol [Farxiga] 10 mg PO DAILY Semaglutide [Ozempic] 2 mg SQ FR Discharge Medication List Dapagliflozin Propanediol [Farxiga] 10 mg PO DAILY 12/13/24 [History] Ibuprofen/Acetaminophen [Advil Dual Action 125MG(IBU)-250MG(ACET)] 3 tab PO Q8H PRN 12/13/24 [History] Losartan Potassium [Cozaar] 100 mg PO DAILY 12/13/24 [History] Semaglutide [Ozempic] 2 mg SQ FR 12/13/24 [History] Acetaminophen Tab [Tylenol] 650 mg PO Q6HR PRN tab 12/18/24 [Rx] Acetaminophen-Codeine 300-30mg [Tylenol w/codeine #3] 1 each PO Q6HR PRN #10 tab 12/18/24 [Rx] Aspirin 81 mg PO DAILY #30 tab 12/18/24 [Rx] Atorvastatin [Lipitor] 80 mg PO HS #30 tab 12/18/24 [Rx] Clopidogrel [Plavix] 75 mg PO DAILY #30 tab 12/18/24 [Rx] Gabapentin [Neurontin] 300 mg PO TID PRN #30 cap 12/18/24 [Rx] Pantoprazole [Protonix] 40 mg PO AC-BRKFST #30 tab 12/18/24 [Rx] amLODIPine [Norvasc] 5 mg PO DAILY #30 tab 12/18/24 [Rx] Follow up Appointment(s)/Referral(s): [facility] [facility] [NON-STAFF] - Piotr Badillo MD [STAFF PHYSICIAN] - 1 Week (office to call you with appt time) Dolores Husain DO [STAFF PHYSICIAN] - 1 Week (December 31, 12:15) Dayron Rothman DO [Primary Care Provider] - 1-2 days (Sunday, December 24 2:15) Carissa Nunez MD [Medical Doctor] - 1 Week (left message with office) Patient Instructions/Handouts: Ischemic Stroke (GEN), Self Care Measures After a Stroke (DC), Carotid Endarterectomy (DC) Activity/Diet/Wound Care/Special Instructions: Activity limited until follow-up Follow-up with primary care provider on discharge Follow-up with vascular surgery outpatient Follow-up with cardiology outpatient Follow-up with neurology outpatient Continue taking medications as prescribed Recommend to monitor blood pressure at least daily and keep a diary of all blood pressure readings and bring with you to follow-up appointments Discharge/Stand Alone Forms: Who Do I Call? Discharge Disposition: HOME SELF-CARE
== END 2024-12-18 14:23 | disposition home or self-care (01) | DRG 39 ==
LOC: EC 11:18 → 3SCARD 13:56 → OBSVTOIN 13:56 → 3SCARD 15:17
PROVIDERS: ADMIT Internal Medicine; ATTEND Internal Medicine
PROC: 03UK0KZ Supplement Right Internal Carotid Artery with Nonautologous Tissue Substitute, Open Approach (ICD-10-PCS; 2024-12-17)
PROC: 03CK0ZZ Extirpation of Matter from Right Internal Carotid Artery, Open Approach (ICD-10-PCS; principal; 2024-12-17 11:30)
DX: I63.231 Cerebral infarction due to unspecified occlusion or stenosis of right carotid arteries (principal); I16.0 Hypertensive urgency; E11.42 Type 2 diabetes mellitus with diabetic polyneuropathy; G83.11 Monoplegia of lower limb affecting right dominant side; E11.65 Type 2 diabetes mellitus with hyperglycemia; I10 Essential (primary) hypertension; F17.210 Nicotine dependence, cigarettes, uncomplicated; E78.1 Pure hyperglyceridemia; E78.00 Pure hypercholesterolemia, unspecified; R29.701 NIHSS score 1; R20.2 Paresthesia of skin; R51.9 Headache, unspecified; Z79.84 Long term (current) use of oral hypoglycemic drugs; Z79.899 Other long term (current) drug therapy; Z79.85 Long-term (current) use of injectable non-insulin antidiabetic drugs; Z85.42 Personal history of malignant neoplasm of other parts of uterus; Z91.81 History of falling; Z86.73 Personal history of transient ischemic attack (TIA), and cerebral infarction without residual deficits; Z90.710 Acquired absence of both cervix and uterus
CPT/HCPCS: 36415; 70450; 70496; 70498; 70551; 71046; 80048; 80053; 80061; 80306; 81003; 82550; 83036; 85025; 85610; 85730; 88304; 88305; 88311; 93005; 93306; 96372; 99291